=== PATIENT | female | born 1960 | race Caucasian/White ===

== ENCOUNTER 2016-12-14 11:20 | Inpatient (IN) | payer OTHER ==
[~2016-12-14] VITALS: Ht 154.9 cm; Wt 61.2 kg
[~2016-12-14 11:20] MED LIST: ALBUTEROL0.09 MG/A2 IH; AMLODIPINE5 MG PO; AMOXICILLIN500 MG PO; AMOXIL500 MG PO; ASPIRIN81 M1 PO; ATARAX25 MG PO; CARDIZEM LA240 MG PO; CIPRO500 MG PO; CIPRODEX 0.3%-7.5 ML OT; CLARITIN10 MG PO; DELTASONE5 MG PO; DIFLUCAN150 MG PO; DOXYCYCLINE MO100 MG PO; LIPITOR10 MG PO; LISINOPRIL-HYDR1 TA3 PO; MEDROL DOSEPAK4 MG PO; METOPROLOL50 MG PO; MICONAZOLE2% VG; MOTRIN800 MG PO; NEXIUM20 M1 PO; NKHM; NKHM PO; NORCO 325 MG-51 TAB PO; NORVASC5 MG PO; OMNICEF300 MG PO; PEPCID20 MG PO; PREDNICOT20 MG PO; PREDNISONE10 MG PO; PROZAC10 MG PO; RISPERDAL2 MG PO; ROBITUSSIN DM 105 ML PO; SEPTRA DS 800 M1 TAB PO; TESSALON PERLE100 M1 PO; VENTOLIN0.09 MG/AC INH; VIBRAMYCIN100 MG PO; VICODIN 5/500 505 MG PO; VICODIN ES 7501 TA1 PO; VICODIN1 TAB PO; VISTARIL25 M1 PO; ZITHROMAX250 MG PO; ZOVIRAX800 MG PO
[2016-12-14 11:25] VITALS: BP 135/77
[2016-12-14] MEDS ORDERED: VITAMIN E400 UNI2 PO (11:28)
[2016-12-14] MEDS ORDERED: VITAMIN D31000 IU PO (11:29)
[2016-12-14] MEDS ORDERED: MOBIC7.5 MG PO (11:29)
[2016-12-14] MEDS ORDERED: MINIPRESS2 M1 PO (11:29)
[2016-12-14] MEDS ORDERED: NYSTATIN100000 U/M PO (11:30)
[2016-12-14] MEDS ORDERED: AMOXICILLIN500 M3 PO (11:30)
[2016-12-14 12:09] LABS: BASO % 0.3 % (0.0-1.0); EOS # 0.2 10*3/uL (0.0-0.4); EOS % 1.6 % (1.0-4.0); HEMATOCRIT 37.9 % (37.0-47.0); HEMOGLOBIN 12.9 g/dl (12.0-16.0); LYMPH # 1.6 10*3/uL (1.3-4.4); MEAN CELL VOLUME 85.9 fl (81.0-99.0); MEAN CORPUSCULAR HGB 29.3 pg (27.0-31.0); MEAN PLATELET VOLUME 9.7 fl (9.6-12.3); MONO # 0.8 10*3/uL (0.1-1.0); MONO % 6.9 % (3.0-9.0); NEUT # 8.8 10*3/uL (2.3-7.9); NEUT % 76.8 % (47.0-73.0); PLATELET COUNT AUTOMATED 320 10*3/uL (130-400); RED BLOOD COUNT 4.41 10*6/uL (4.10-5.10); RED CELL DISTRI WIDTH 14.4 % (0-14.5); WHITE BLOOD COUNT 11.4 10*3/uL (4.8-10.8)
[2016-12-14 12:18] LABS: INTERNATIONAL NORM RATIO 0.9 (2.0-3.5)
[2016-12-14 12:27] LABS: ALBUMIN 3.9 gm/dl (3.1-4.5); ALKALINE PHOSPHATASE 72 U/L (45-117); BILIRUBIN, TOTAL 0.4 mg/dl (0.2-1.0); BUN 21 mg/dl (7-24); CARBON DIOXIDE 25 mmol/L (21-32); CHLORIDE 108 mmol/L (98-107); CKMB 0.5 ng/ml (0.5-3.6); EST GLOM FILT AFRICAN AMERICAN > 60 ml/min; GLUCOSE 106 mg/dL (65-99); MAGNESIUM 1.8 mg/dL (1.5-2.1); POTASSIUM 3.6 mmol/L (3.5-5.1); SGOT/AST 18 IU/L (3-35); SGPT/ALT 31 U/L (12-78); SODIUM 143 mmol/L (136-145); TOTAL PROTEIN 7.3 gm/dL (6.4-8.2)
[2016-12-14 12:28] LABS: C-REACTIVE PROTEIN < 0.29 MG/DL (0-0.3); TROPONIN I < 0.015 ng/ml (<0.045)
[2016-12-14 12:51] LABS: BILIRUBIN NEGATIVE (NEGATIVE); BLOOD NEGATIVE (NEGATIVE); CLARITY CLEAR (CLEAR); COLOR YELLOW (YELLOW); GLUCOSE NEGATIVE (NEGATIVE); KETONE NEGATIVE (NEGATIVE); LEUKO ESTERASE NEGATIVE (NEGATIVE); NITRITE NEGATIVE (NEGATIVE); PROTEIN TRACE (NEGATIVE); SPECIFIC GRAVITY 1.015 (1.005-1.030); UROBILINOGEN 0.2 E.U./dl (0.2-1.0)
[2016-12-14 12:58] LABS: EPITHELIAL CELLS 0-2; RBC 0-2 rbc/hpf (0-2)
[2016-12-14 12:59] LABS: URINE REFLEX COMMENT NO (NO)
[2016-12-14 14:06] LABS: LA>2 REFLEX 2 HR DRAW NOW
[2016-12-14 16:00] VITALS: BP 149/76
[2016-12-14 18:02] LABS: CKMB 0.8 ng/ml (0.5-3.6); CPK 61 U/L (26-192)
[2016-12-14 18:04] LABS: TROPONIN I < 0.015 ng/ml (<0.045)
[2016-12-14 20:00] VITALS: BP 161/89
[2016-12-15] VITALS: BP 163/85
[2016-12-15 00:41] LABS: CPK 77 U/L (26-192)
[2016-12-15 00:42] LABS: TROPONIN I < 0.015 ng/ml (<0.045)
[2016-12-15 04:00] VITALS: BP 154/87
[2016-12-15 07:06] LABS: BASO % 0.1 % (0.0-1.0); HEMOGLOBIN 11.7 g/dl (12.0-16.0); IG # 0.1 10*3/uL (0.0-0.1); LYMPH # 1.4 10*3/uL (1.3-4.4); LYMPH % 8.2 % (27.0-41.0); MEAN CELL VOLUME 87.5 fl (81.0-99.0); MEAN CORPUSCULAR HGB 29.3 pg (27.0-31.0); MEAN CORPUSCULAR HGB CONC 33.4 g/dl (33.0-37.0); MEAN PLATELET VOLUME 10.3 fl (9.6-12.3); MONO # 0.5 10*3/uL (0.1-1.0); MONO % 3.1 % (3.0-9.0); NEUT # 14.4 10*3/uL (2.3-7.9); NEUT % 87.8 % (47.0-73.0); PLATELET COUNT AUTOMATED 304 10*3/uL (130-400); RED CELL DISTRI WIDTH 14.6 % (0-14.5); WHITE BLOOD COUNT 16.4 10*3/uL (4.8-10.8)
[2016-12-15 07:16] LABS: CPK 96 U/L (26-192)
[2016-12-15 07:22] LABS: TROPONIN I < 0.015 ng/ml (<0.045)
[2016-12-15 07:39] LABS: ALBUMIN 3.6 gm/dl (3.1-4.5); ALKALINE PHOSPHATASE 65 U/L (45-117); BILIRUBIN, TOTAL 0.2 mg/dl (0.2-1.0); BUN 12 mg/dl (7-24); CARBON DIOXIDE 22 mmol/L (21-32); CHLORIDE 112 mmol/L (98-107); EST GLOM FILT AFRICAN AMERICAN > 60 ml/min; FREE T4 0.96 ng/dl (0.76-1.46); GLUCOSE 122 mg/dL (65-99); MAGNESIUM 1.9 mg/dL (1.5-2.1); PHOSPHOROUS 2.4 mg/dL (2.5-4.9); POTASSIUM 3.8 mmol/L (3.5-5.1); SGOT/AST 25 IU/L (3-35); SGPT/ALT 33 U/L (12-78); SODIUM 145 mmol/L (136-145); TOTAL PROTEIN 6.8 gm/dL (6.4-8.2)
[2016-12-15 07:41] LABS: PROTHROMBIN TIME 10.7 SECONDS (9.0-12.4)
[2016-12-15 07:44] LABS: THYROID STIM HORMONE (HS) 0.301 uIU/ml (0.358-4.75)
[2016-12-15 08:00] VITALS: BP 156/88
[2016-12-15 12:00] VITALS: BP 156/90
[2016-12-15 16:00] VITALS: BP 150/78
[2016-12-15 20:00] VITALS: BP 148/78; BP 150/75
[2016-12-16] VITALS: BP 151/90
[2016-12-16 04:00] VITALS: BP 150/90
[2016-12-16 06:13] LABS: BASO % 0.3 % (0.0-1.0); EOS # 0.1 10*3/uL (0.0-0.4); EOS % 0.9 % (1.0-4.0); HEMATOCRIT 33.4 % (37.0-47.0); HEMOGLOBIN 11.3 g/dl (12.0-16.0); LYMPH # 2.5 10*3/uL (1.3-4.4); LYMPH % 31.7 % (27.0-41.0); MEAN CELL VOLUME 87.7 fl (81.0-99.0); MEAN CORPUSCULAR HGB 29.7 pg (27.0-31.0); MEAN CORPUSCULAR HGB CONC 33.8 g/dl (33.0-37.0); MEAN PLATELET VOLUME 10.3 fl (9.6-12.3); MONO # 0.6 10*3/uL (0.1-1.0); MONO % 7.7 % (3.0-9.0); NEUT # 4.6 10*3/uL (2.3-7.9); PLATELET COUNT AUTOMATED 259 10*3/uL (130-400); RED BLOOD COUNT 3.81 10*6/uL (4.10-5.10); RED CELL DISTRI WIDTH 14.9 % (0-14.5); WHITE BLOOD COUNT 7.8 10*3/uL (4.8-10.8)
[2016-12-16 06:40] LABS: BUN 10 mg/dl (7-24); CARBON DIOXIDE 26 mmol/L (21-32); CHLORIDE 110 mmol/L (98-107); EST GLOM FILT AFRICAN AMERICAN > 60 ml/min; GLUCOSE 88 mg/dL (65-99); POTASSIUM 3.4 mmol/L (3.5-5.1); SODIUM 145 mmol/L (136-145)
[2016-12-16 08:00] VITALS: BP 136/80
[2016-12-16] MEDS ORDERED: D-1000 185 MG-11 TAB PO (09:41)
[2016-12-16] MEDS ORDERED: HYDR12.5C PO (09:41)
== END 2016-12-16 10:00 | disposition home or self-care (01) | DRG 872 ==
LOC: ED 11:20 → EDHOLD 12:46 → 4E 12:46
PROVIDERS: Family Medicine; Hospitalist; Student in an Organized Health Care Education/Training Program
DX: A41.9 Sepsis, unspecified organism (principal); J43.9 Emphysema, unspecified; I10 Essential (primary) hypertension; R11.10 Vomiting, unspecified; J40 Bronchitis, not specified as acute or chronic; F41.1 Generalized anxiety disorder; R19.09 Other intra-abdominal and pelvic swelling, mass and lump; A08.4 Viral intestinal infection, unspecified; Z90.49 Acquired absence of other specified parts of digestive tract; Z87.891 Personal history of nicotine dependence; Z80.9 Family history of malignant neoplasm, unspecified; Z79.2 Long term (current) use of antibiotics; Z79.899 Other long term (current) drug therapy

== ENCOUNTER → 2017-01-14 | Outpatient (CLI) | payer OTHER ==
[~2017-01-14] MED LIST changes: +AMOXICILLIN500 M3 PO; +D-1000 185 MG-11 TAB PO; +HYDR12.5C PO; +MINIPRESS2 M1 PO; +MOBIC7.5 MG PO; +NYSTATIN100000 U/M PO; +VITAMIN D31000 IU PO; +VITAMIN E400 UNI2 PO
== END | disposition home or self-care (01) ==
LOC: US 14:28
DX: R10.2 Pelvic and perineal pain (principal)

== ENCOUNTER → 2017-02-04 | Outpatient (CLI) | payer MEDICARE, MEDICAID ==
[2017-02-04 14:30] LABS: BASO % 0.4 % (0.0-1.0); EOS # 0.2 10*3/uL (0.0-0.4); EOS % 2.3 % (1.0-4.0); HEMATOCRIT 39.3 % (37.0-47.0); HEMOGLOBIN 12.9 g/dl (12.0-16.0); LYMPH # 2.3 10*3/uL (1.3-4.4); LYMPH % 32.3 % (27.0-41.0); MEAN CELL VOLUME 90.1 fl (81.0-99.0); MEAN CORPUSCULAR HGB 29.6 pg (27.0-31.0); MEAN CORPUSCULAR HGB CONC 32.8 g/dl (33.0-37.0); MEAN PLATELET VOLUME 10.5 fl (9.6-12.3); MONO # 0.6 10*3/uL (0.1-1.0); MONO % 8.5 % (3.0-9.0); NEUT % 56.1 % (47.0-73.0); PLATELET COUNT AUTOMATED 311 10*3/uL (130-400); RED BLOOD COUNT 4.36 10*6/uL (4.10-5.10); RED CELL DISTRI WIDTH 14.2 % (0-14.5); WHITE BLOOD COUNT 7.1 10*3/uL (4.8-10.8)
== END | disposition home or self-care (01) ==
LOC: LAB 12:46
PROVIDERS: Obstetrics & Gynecology
DX: N83.209 Unspecified ovarian cyst, unspecified side (principal)

== ENCOUNTER → 2017-02-10 | Day surgery (SDC) | payer MEDICARE, MEDICAID ==
[~2017-02-10] VITALS: Ht 157.4 cm; Wt 62.6 kg
[2017-02-10] VITALS (12 sets, daily range): BP systolic 101–135; BP diastolic 52–82
[~2017-02-10] MED LIST changes: +PERCOCET 325 MG1 TA5 PO; +ZOFRAN ODT4 MG SL
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
--- NOTE | ~2017-02-10 | O ---
[place], [place] OPERATIVE NOTE NAME: AMAN CATALAN [facility] #: [id number] UNIT #: [id number] ROOM: DOCTOR: BUZZ PINEDA MD BIRTHDATE: [birth year] DOS: 02/10/2017 PREOPERATIVE DIAGNOSES: Left lower quadrant pain and a large simple cyst of the left ovary per ultrasound. POSTOPERATIVE DIAGNOSES: Left lower quadrant pain and a large simple cyst of the left ovary per ultrasound, but the large cyst of the ovary was actually considerably larger than the ultrasound suggested and it was mucinous and not just a simple serous cyst. PROCEDURE: The operation itself was a diagnostic and operative laparoscopy with a bilateral salpingo-oophorectomy and only minimal aspiration of this cyst to send the fluid for cytology. SURGEONS: Buzz Pineda M.D and Dr. Pickett. ANESTHETIC: General. ESTIMATED BLOOD LOSS: Minimal. REPLACEMENTS: IV fluids and Toradol. COMPLICATIONS: There were no complications. CONDITION: The patient's condition to recovery stable. OPERATIVE SUMMARY: The patient was taken to the operating room in supine position and general anesthesia with endotracheal intubation followed by placement in lithotomy position, prepped and draped in routine manner. Straight cath of the bladder was completed and the cervix was then grasped with a cervical manipulator placed. Infraumbilical and suprapubic incisions were made under direct visualization. A 5 mm trocar and sleeve and laparoscope were introduced through the infraumbilical incision. CO2 was then insufflated followed by placement of another 5 mm trocar and sleeve through the suprapubic incision and then once we had completed our survey, we placed an 11-12 trocar and sleeve through the right lower quadrant incision. The uterus itself was normal with only a couple of small fibroids. The anterior and posterior cul-de-sacs were normal. The right tube and ovary was atrophic and normal. The left ovary was considerably larger than the ultrasound had suggested, but was free and mobile and the left tube itself was normal. Evaluation of the cecum suggested appendix, but there were some periappendiceal adhesions noted. The liver edge was considered to be normal. The gallbladder was not visualized. Once the survey had been completed, we introduced through the right lower quadrant incision and trocar, a LigaSure and then we proceeded to remove each tube and ovary without complication. Ureters were maintained in visualization when well below our operative sites bilaterally. Good hemostasis was achieved in both operative sites in both adnexal regions. Once this was completed, we placed both tubes and ovaries into an EndoCatch bag and then we attempted to aspirate within the bag the large cyst to help with its removal; however, this was anything but a simple serous cyst. The fluid removed was quite viscus [place], [place] OPERATIVE NOTE NAME: AMAN CATALAN UNIT #: [id number] ROOM: DOCTOR: BUZZ PINEDA MD BIRTHDATE: [birth year] consistent with a mucinous cystadenoma. We removed what we could and sent that for cytology, but then we closed the bag and gradually worked away the bag out through the right lower quadrant incision having expanded it just slightly to help get the specimen out. Once this was completed, we again examined for hemostasis and noted good hemostasis. We closed the fascia with a running locking 0 Vicryl suture in the right lower quadrant incision. We then used 3-0 Monocryl to reapproximate the subcutaneous tissue and the skin. We then used a Monocryl for subcuticular closure of the suprapubic and infraumbilical incisions as well. Once that was completed, the patient was cleaned off. Dressings placed. The instrumentation was removed from the vagina and noting good hemostasis within the vagina, from the vagina and the patient was taken out of lithotomy position, awakened, extubated, and transferred to recovery in satisfactory condition with stable vital signs, good hemostasis, stable sponge and instrument count. BUZZ PINEDA MD CM:OPRECORD:OPERATIVE NOTE 1227 1327 MARY PINEDA MD 02/10/17 1326 interface
== END | disposition home or self-care (01) ==
LOC: SDC 02-04 13:15
DX: N83.292 Other ovarian cyst, left side (principal); I10 Essential (primary) hypertension; K21.9 Gastro-esophageal reflux disease without esophagitis; F17.210 Nicotine dependence, cigarettes, uncomplicated; Z98.890 Other specified postprocedural states; I09.9 Rheumatic heart disease, unspecified; F41.9 Anxiety disorder, unspecified; F32.9 Major depressive disorder, single episode, unspecified; J44.9 Chronic obstructive pulmonary disease, unspecified; E78.5 Hyperlipidemia, unspecified; Z87.01 Personal history of pneumonia (recurrent); Z98.51 Tubal ligation status; Z83.3 Family history of diabetes mellitus; Z80.3 Family history of malignant neoplasm of breast; Z79.899 Other long term (current) drug therapy

== ENCOUNTER 2017-02-11 12:14 | Emergency (ER) | payer MEDICARE, MEDICAID ==
[~2017-02-11] VITALS: Ht 157.4 cm; Wt 61.2 kg
[~2017-02-11 12:14] MED LIST changes: -ZOFRAN ODT4 MG SL
[2017-02-11 13:11] LABS: BASO % 0.1 % (0.0-1.0); HEMATOCRIT 37.7 % (37.0-47.0); HEMOGLOBIN 12.8 g/dl (12.0-16.0); IG # 0.1 10*3/uL (0.0-0.1); LYMPH # 1.7 10*3/uL (1.3-4.4); LYMPH % 8.7 % (27.0-41.0); MEAN CELL VOLUME 88.5 fl (81.0-99.0); MEAN PLATELET VOLUME 10.4 fl (9.6-12.3); MONO # 0.8 10*3/uL (0.1-1.0); MONO % 4.3 % (3.0-9.0); NEUT # 16.9 10*3/uL (2.3-7.9); NEUT % 86.4 % (47.0-73.0); PLATELET COUNT AUTOMATED 320 10*3/uL (130-400); RED BLOOD COUNT 4.26 10*6/uL (4.10-5.10); WHITE BLOOD COUNT 19.6 10*3/uL (4.8-10.8)
[2017-02-11 13:19] LABS: BILIRUBIN NEGATIVE (NEGATIVE); BLOOD 2+ (NEGATIVE); CLARITY SL CLOUDY (CLEAR); COLOR YELLOW (YELLOW); GLUCOSE TRACE (NEGATIVE); KETONE NEGATIVE (NEGATIVE); LEUKO ESTERASE NEGATIVE (NEGATIVE); NITRITE NEGATIVE (NEGATIVE); PROTEIN TRACE (NEGATIVE); SPECIFIC GRAVITY 1.025 (1.005-1.030); UROBILINOGEN 0.2 E.U./dl (0.2-1.0)
[2017-02-11 13:21] LABS: PROTHROMBIN TIME 10.5 SECONDS (9.0-12.4)
[2017-02-11 13:27] LABS: MUCOUS 2+; RBC 16-20 rbc/hpf (0-2); URINE REFLEX COMMENT YES (NO)
[2017-02-11 13:28] LABS: ALBUMIN 3.8 gm/dl (3.1-4.5); ALKALINE PHOSPHATASE 65 U/L (45-117); BILIRUBIN, TOTAL 0.2 mg/dl (0.2-1.0); BUN 17 mg/dl (7-24); C-REACTIVE PROTEIN < 0.29 MG/DL (0-0.3); CARBON DIOXIDE 21 mmol/L (21-32); CHLORIDE 107 mmol/L (98-107); CPK 98 U/L (26-192); EST GLOM FILT AFRICAN AMERICAN > 60 ml/min; GLUCOSE 143 mg/dL (65-99); POTASSIUM 3.7 mmol/L (3.5-5.1); SGOT/AST 24 IU/L (3-35); SGPT/ALT 50 U/L (12-78); SODIUM 143 mmol/L (136-145); TOTAL PROTEIN 7.5 gm/dL (6.4-8.2); TROPONIN I < 0.015 ng/ml (<0.045)
[2017-02-11 15:08] LABS: LA>2 REFLEX 2 HR DRAW NOW
[2017-02-11] MEDS ORDERED: ZOFRAN ODT4 MG SL (16:21)
== END 2017-02-11 16:35 | disposition home or self-care (01) ==
LOC: ED 12:14
PROVIDERS: Emergency Medicine
DX: G89.18 Other acute postprocedural pain (principal); R11.2 Nausea with vomiting, unspecified; J44.9 Chronic obstructive pulmonary disease, unspecified; I11.9 Hypertensive heart disease without heart failure; Z90.710 Acquired absence of both cervix and uterus; Z79.899 Other long term (current) drug therapy

== ENCOUNTER 2017-07-31 14:20 | Emergency (ER) | payer OTHER, MEDICARE, MEDICAID ==
[~2017-07-31] VITALS: Ht 157.4 cm; Wt 59.0 kg
[~2017-07-31 14:20] MED LIST changes: +ZOFRAN ODT4 MG SL
[2017-07-31] MEDS ORDERED: KETOROLAC10 MG PO (17:51)
== END 2017-07-31 17:53 | disposition home or self-care (01) ==
LOC: ED 14:20
DX: S50.02XA Contusion of left elbow, initial encounter (principal); I10 Essential (primary) hypertension; S80.01XA Contusion of right knee, initial encounter; V47.5XXA Car driver injured in collision with fixed or stationary object in traffic accident, initial encounter; Y93.89 Activity, other specified; Y92.488 Other paved roadways as the place of occurrence of the external cause; Y99.8 Other external cause status

== ENCOUNTER 2017-10-25 15:52 | Emergency (ER) | payer MEDICARE, MEDICAID ==
[~2017-10-25] VITALS: Ht 157.4 cm; Wt 59.0 kg
[~2017-10-25 15:52] MED LIST changes: +KETOROLAC10 MG PO
[2017-10-25] MEDS ORDERED: SEPTDS PO (16:01)
== END 2017-10-25 16:01 | disposition home or self-care (01) ==
LOC: ED 15:52
DX: Z48.01 Encounter for change or removal of surgical wound dressing (principal); R03.0 Elevated blood-pressure reading, without diagnosis of hypertension; J44.9 Chronic obstructive pulmonary disease, unspecified; Z90.49 Acquired absence of other specified parts of digestive tract

== ENCOUNTER 2018-05-08 13:52 | Emergency (ER) | payer MEDICARE, MEDICAID ==
[~2018-05-08] VITALS: Ht 157.4 cm; Wt 61.2 kg
--- NOTE | ~2018-05-08 | EKG ---
[place], [place] ELECTROCARDIOGRAM REPORT NAME: AMAN CATALAN UNIT #: [id number] ROOM: DOCTOR: CHARLENE DRAFT REPORT BIRTHDATE: [birth year] [facility] Test Date: 2018-05-08 Test Time: 13:58:16 Pat Name: AMAN CATALAN Department: Room: Gender: F Jacquard Plate Maker: : 1960 Requested By: SHANITA WALLACE Order Number: [id number] Reading MD: Eugene Smith MD Measurements Intervals [place] Rate: 92 P: 70 SD: 148 QRS: 64 QRSD: 96 T: 39 QT: 385 QTc: 477 Interpretive Statements Sinus rhythm Normal ECG Electronically Signed On 05-10-2018 6:16:46 PDT by Eugene Smith MD CM:EKGRPT:ELECTROCARDIOGRAM REPORT [id number] SHANITA CHANG DRAFT REPORT SHANITA WALLACE MD
[~2018-05-08 13:52] MED LIST changes: +SEPTDS PO
[2018-05-08 14:31] LABS: BASO % 0.2 % (0.0-1.0); EOS # 0.1 10*3/uL (0.0-0.4); EOS % 0.6 % (1.0-4.0); HEMATOCRIT 37.4 % (37.0-47.0); HEMOGLOBIN 12.9 g/dl (12.0-16.0); LYMPH # 1.3 10*3/uL (1.3-4.4); LYMPH % 10.5 % (27.0-41.0); MEAN CORPUSCULAR HGB CONC 34.5 g/dl (33.0-37.0); MEAN PLATELET VOLUME 9.9 fl (9.6-12.3); MONO # 0.7 10*3/uL (0.1-1.0); MONO % 5.1 % (3.0-9.0); NEUT # 10.6 10*3/uL (2.3-7.9); NEUT % 83.2 % (47.0-73.0); PLATELET COUNT AUTOMATED 317 10*3/uL (130-400); RED CELL DISTRI WIDTH 13.6 % (0-14.5); WHITE BLOOD COUNT 12.7 10*3/uL (4.8-10.8)
[2018-05-08 14:40] LABS: ACT PARTIAL THROMBO TIME 21.8 SECONDS (20.8-31.5); INTERNATIONAL NORM RATIO 0.9 (2.0-3.5)
[2018-05-08 14:48] LABS: ALBUMIN 4.2 gm/dl (3.1-4.5); ALKALINE PHOSPHATASE 69 U/L (45-117); BUN 26 mg/dl (7-24); CHLORIDE 104 mmol/L (98-107); CREATININE 0.73 mg/dL (0.55-1.02); POTASSIUM 3.5 mmol/L (3.5-5.1); SGOT/AST 13 IU/L (3-35); SGPT/ALT 20 U/L (12-78); SODIUM 137 mmol/L (136-145); TOTAL PROTEIN 7.6 gm/dL (6.4-8.2)
[2018-05-08 14:51] LABS: TROPONIN I < 0.015 ng/ml (<0.045)
[2018-05-08] MEDS ORDERED: CIPRODEX 0.3%-7.5 ML OT ×3 (15:49→16:22)
[2018-07-24] MEDS ORDERED: MELOXICAM7.5 MG PO (09:39)
[2018-07-24] MEDS ORDERED: OMEPRAZOLE40 MG PO (09:41)
[2018-07-24] MEDS ORDERED: CRESTOR5 MG PO (09:42)
== END 2018-05-08 16:12 | disposition home or self-care (01) ==
LOC: ED 13:52
PROVIDERS: Emergency Medicine
DX: H72.92 Unspecified perforation of tympanic membrane, left ear (principal); I10 Essential (primary) hypertension; J44.9 Chronic obstructive pulmonary disease, unspecified; E78.00 Pure hypercholesterolemia, unspecified; Z87.891 Personal history of nicotine dependence; Z90.49 Acquired absence of other specified parts of digestive tract; Z79.899 Other long term (current) drug therapy

== ENCOUNTER → 2018-06-12 | Outpatient (CLI) | payer MEDICARE, MEDICAID ==
[~2018-06-12] MED LIST changes: +CRESTOR5 MG PO; +MELOXICAM7.5 MG PO; +OMEPRAZOLE40 MG PO
--- NOTE | ~2018-06-12 | EKG ---
[place], [place] ELECTROCARDIOGRAM REPORT NAME: AMAN CATALAN UNIT #: [id number] ROOM: DOCTOR: EPIPHANY DRAFT REPORT BIRTHDATE: [birth year] [facility] Test Date: 2018-06-12 Test Time: 11:35:19 Pat Name: AMAN CATALAN Department: Room: Gender: F Director Hris: Dafne Giles : 1960 Requested By: TOÑO MARSHALL Order Number: [id number] Reading MD: Arnav Michel MD Measurements Intervals [place] Rate: 71 P: 64 [place]: 138 QRS: 59 QRSD: 95 T: 36 QT: 391 QTc: 425 Interpretive Statements Sinus rhythm Compared to ECG 05/08/2018 13:58:16 No significant changes Electronically Signed On 06-12-2018 11:13:32 PDT by Arnav Michel MD CM:EKGRPT:ELECTROCARDIOGRAM REPORT 1135 1113 TOÑO CHANG DRAFT REPORT TOÑO MARSHALL
== END | disposition home or self-care (01) ==
LOC: RAD 11:19
DX: I10 Essential (primary) hypertension (principal); J44.9 Chronic obstructive pulmonary disease, unspecified

== ENCOUNTER → 2018-06-16 | Outpatient (CLI) | payer MEDICARE, MEDICAID | END | disposition home or self-care (01) | LOC: CT 08:41 | DX: K57.30 Diverticulosis of large intestine without perforation or abscess without bleeding (principal); M47.896 Other spondylosis, lumbar region; K21.9 Gastro-esophageal reflux disease without esophagitis; R10.2 Pelvic and perineal pain; R11.0 Nausea; I70.0 Atherosclerosis of aorta ==

== ENCOUNTER → 2018-07-01 | Outpatient (CLI) | payer MEDICARE, MEDICAID | END | disposition home or self-care (01) | LOC: RAD 06-30 12:05 | DX: M19.042 Primary osteoarthritis, left hand (principal); M19.041 Primary osteoarthritis, right hand; R06.02 Shortness of breath; J44.9 Chronic obstructive pulmonary disease, unspecified; I10 Essential (primary) hypertension; Z87.891 Personal history of nicotine dependence ==

== ENCOUNTER → 2018-07-29 | Day surgery (SDC) | payer MEDICARE, MEDICAID ==
[~2018-07-29] VITALS: Ht 162.5 cm; Wt 63.5 kg
--- NOTE | ~2018-07-29 | O ---
[place], [place] OPERATIVE NOTE [id number] #: [id number] ROOM: DOCTOR: ARSENIO FRANCOIS,DOROTHY BIRTHDATE: [birth year] DOS: 07/29/2018 GASTROENDOSCOPIC REPORT INDICATIONS: The patient has presented with hepatic lesion of 1.3 cm. We have been concerned about if it has been contribution from colon. PROCEDURE: Today's procedure part of investigation is colonoscopy. PREMEDICATION: Propofol. SCOPE: Olympus folding colonoscope 10L video. REPORT: After putting the patient in left lateral position and application of lubricant to rectal pouch and digital examination, scope was introduced. Thereafter, under direct visualization, it was advanced through the length of colon without difficulty. There is severe diverticulosis. Some of the diverticula are quite large simulating diameter of the lumen of the colon. Some light large fecalith are impacted in them. Base of cecum however explored; however, there is retained semi-liquid stool throughout the length of colon that makes detailed visualization impractical. The patient was extubated, tolerated the procedure well. IMPRESSION: Retained stool and severe diverticulosis. PLAN: This patient requires another colonoscopy for detailed evaluation in the future. As far as the liver is concerned, I am going to obtain a sonogram of the texture of the liver to make sure if there is consistency with the findings of CT scan as far as liver mass of 1.3 cm is concerned. DOROTHY CESAR MD CM:OPRECORD:OPERATIVE NOTE 6 3 DOROTHY CESAR MD 07/29/18833 interface
--- NOTE | ~2018-07-29 | O ---
[place], [place] OPERATIVE NOTE [id number] #: [id number] ROOM: DOCTOR: DOROTHY CESAR MD BIRTHDATE: [birth year] DOS: 07/29/2018 GASTROENDOSCOPIC REPORT INDICATIONS: This is a 58-year-old patient who has presented with abdominal pain, left lower quadrant pain, constipation, dyspepsia, on meloxicam and on omeprazole. CT scan suspected a 1.3 cm hepatic lesion. ALLERGIES: To no known medication. FAMILY HISTORY: Uncle with colon CA. PAST SURGICAL HISTORY: Hysterectomy, tubal ligation, and cholecystectomy. PAST MEDICAL HISTORY: COPD, hypertension, and hyperlipidemia. SOCIAL HISTORY: She has stopped smoking 2 years ago. Social alcohol. PROCEDURE: Today's procedure part of investigation is panendoscopy and colonoscopy. PREMEDICATION: Propofol. SCOPE: Olympus forward-viewing gastroscope Q10 video. REPORT: After putting the patient in left lateral position and application of lubricant to the scope, the scope was introduced. Thereafter, under direct visualization, it was advanced the length of esophagus without difficulty. Esophagus, cervical, thoracic disks are within normal limits. Hiatal hernia was noticed. Gastritis seen. Antral biopsy was obtained. The duodenal bulb, second and third part within normal limits. The patient was extubated, tolerated the procedure well. IMPRESSION: Hiatal hernia and gastritis. PLAN: We are going to continue with omeprazole 40 mg daily. The patient is on meloxicam and should stay on PPI chronically. [place], [place] OPERATIVE NOTE NAME: AMAN CATALAN UNIT #: [id number] ROOM: DOCTOR: DOROTHY CESAR MD BIRTHDATE: [birth year] DOROTHY CESAR MD CM:OPRECORD:OPERATIVE NOTE 6 6 DOROTHY CESAR MD 07/29/18826 interface
[2018-07-29 06:30] VITALS: BP 135/66
[2018-07-29 08:10] VITALS: BP 139/94
[2018-07-29 08:25] VITALS: BP 151/77
[2018-07-29 08:40] VITALS: BP 133/93
== END | disposition home or self-care (01) ==
LOC: SDC 07-24 08:00
DX: K57.30 Diverticulosis of large intestine without perforation or abscess without bleeding (principal); K29.50 Unspecified chronic gastritis without bleeding; K44.9 Diaphragmatic hernia without obstruction or gangrene; K56.41 Fecal impaction; I10 Essential (primary) hypertension; J44.9 Chronic obstructive pulmonary disease, unspecified; E78.5 Hyperlipidemia, unspecified; K76.89 Other specified diseases of liver; F32.9 Major depressive disorder, single episode, unspecified; F41.9 Anxiety disorder, unspecified; Z90.710 Acquired absence of both cervix and uterus; Z90.49 Acquired absence of other specified parts of digestive tract; Z98.51 Tubal ligation status; Z80.0 Family history of malignant neoplasm of digestive organs; Z87.891 Personal history of nicotine dependence; Z79.899 Other long term (current) drug therapy; Z86.010 Personal history of colon polyps; Z98.890 Other specified postprocedural states

== ENCOUNTER → 2018-08-08 | Outpatient (CLI) | payer MEDICARE, MEDICAID | END | disposition home or self-care (01) | LOC: US 11:00 | DX: R16.0 Hepatomegaly, not elsewhere classified (principal); Z90.49 Acquired absence of other specified parts of digestive tract ==

== ENCOUNTER 2018-09-21 15:08 | Emergency (ER) | payer MEDICARE, MEDICAID ==
[~2018-09-21] VITALS: Ht 157.4 cm; Wt 61.7 kg
[2018-09-21] MEDS ORDERED: PROAIR HFA8.5 GM INH (16:37)
[2018-09-21] MEDS ORDERED: PREDNISONE50 MG PO (16:37)
[2018-09-21] MEDS ORDERED: AVPAK AZITHROM250 MG PO (16:37)
[2018-09-21 16:47] LABS: BILIRUBIN NEGATIVE (NEGATIVE); BLOOD TRACE-INTACT (NEGATIVE); CLARITY CLEAR (CLEAR); COLOR YELLOW (YELLOW); GLUCOSE NEGATIVE (NEGATIVE); KETONE NEGATIVE (NEGATIVE); LEUKO ESTERASE 1+ (NEGATIVE); NITRITE NEGATIVE (NEGATIVE); PH 5.5 (5.0-9.0); SPECIFIC GRAVITY <= 1.005 (1.005-1.030); UROBILINOGEN 0.2 E.U./dl (0.2-1.0)
[2018-09-21 16:58] LABS: BACTERIA TRACE
== END 2018-09-21 16:41 | disposition home or self-care (01) ==
LOC: ED 15:08
PROVIDERS: Nurse Practitioner Family
DX: J20.9 Acute bronchitis, unspecified (principal); I10 Essential (primary) hypertension; E78.5 Hyperlipidemia, unspecified; J44.9 Chronic obstructive pulmonary disease, unspecified; Z79.899 Other long term (current) drug therapy

== ENCOUNTER → 2019-04-08 | Outpatient (CLI) | payer MEDICARE, MEDICAID ==
[~2019-04-08] MED LIST changes: +AVPAK AZITHROM250 MG PO; +PREDNISONE50 MG PO; +PROAIR HFA8.5 GM INH
== END | disposition home or self-care (01) ==
LOC: US 09:19
DX: K76.89 Other specified diseases of liver (principal); R11.0 Nausea; Z90.49 Acquired absence of other specified parts of digestive tract

== ENCOUNTER 2019-05-07 12:19 | Inpatient (IN) | payer MEDICARE, MEDICAID ==
[2019-05-07] VITALS (7 sets, daily range): BP systolic 137–160; BP diastolic 64–88
[~2019-05-07] VITALS: Ht 157.4 cm; Wt 59.4 kg
--- NOTE | ~2019-05-07 | EKG ---
[place], [place] ELECTROCARDIOGRAM REPORT NAME: AMAN CATALAN UNIT #: [id number] ROOM: 421 DOCTOR: CHARLENE DRAFT REPORT BIRTHDATE: [birth year] [facility] Test Date: 2019-05-07 Test Time: 18:06:35 Pat Name: AMAN CATALAN Department: Room: 421 1 Gender: F Culinary Director: Dafne Giles : 1960 Requested By: SERA LUONG Order Number: [id number] Reading MD: Jackie Gupta MD Measurements Intervals [place] Rate: 80 P: 63 NE: 151 QRS: 54 QRSD: 98 T: 29 QT: 396 QTc: 457 Interpretive Statements Sinus rhythm Minimal ST depression, inferior leads Compared to ECG 06/12/2018 11:35:19 ST (T wave) deviation now present Electronically Signed On 05-09-2019 7:45:38 PDT by Jackie Gupta MD CM:EKGRPT:ELECTROCARDIOGRAM REPORT 1806 0745 SERA LUONG EPIPHANY DRAFT REPORT SERA LUONG
--- NOTE | ~2019-05-07 | EKG ---
[place], [place] ELECTROCARDIOGRAM REPORT NAME: AMAN CATALAN UNIT #: [id number] ROOM: 421 DOCTOR: CHARLENE DRAFT REPORT BIRTHDATE: [address] [facility] Test Date: 2019-05-07 Test Time: 12:28:11 Pat Name: AMAN CATALAN Department: Room: 421 Gender: F Bung Driver: Dafne Giles : 1960 Requested By: FAHAD MA Order Number: [id number] Reading MD: Jackie Gupta MD Measurements Intervals [place] Rate: 89 P: 54 MD: 156 QRS: 53 QRSD: 94 T: 37 QT: 378 QTc: 460 Interpretive Statements Sinus rhythm Compared to ECG 06/12/2018 11:35:19 No significant changes Electronically Signed On 05-09-2019 7:45:08 PDT by Jackie Gupta MD CM:EKGRPT:ELECTROCARDIOGRAM REPORT 1228 0745 FAHAD MCKNIGHT DRAFT REPORT FAHAD MA DO
--- NOTE | ~2019-05-07 | EKG ---
[place], [place] ELECTROCARDIOGRAM REPORT NAME: AMAN CATALAN UNIT #: [id number] ROOM: 421 DOCTOR: CHARLENE DRAFT REPORT BIRTHDATE: [birth year] [facility] Test Date: 2019-05-07 Test Time: 23:48:42 Pat Name: AMAN CATALAN Department: Room: 421 1 Gender: F Remote Sensing Technologist: : 1960 Requested By: SERA LUONG Order Number: [id number] Reading MD: Jackie Gupta MD Measurements Intervals [place] Rate: 86 P: 67 [place]: 164 QRS: 65 QRSD: 100 T: 47 QT: 385 QTc: 461 Interpretive Statements Sinus rhythm Compared to ECG 06/12/2018 11:35:19 No significant changes Electronically Signed On 05-09-2019 7:46:12 PDT by Jackie Gupta MD CM:EKGRPT:ELECTROCARDIOGRAM REPORT [id number] SERA LUONG EPIPHANY DRAFT REPORT SERA LUONG
[2019-05-07 12:51] LABS: BILIRUBIN NEGATIVE (NEGATIVE); BLOOD 1+ (NEGATIVE); CLARITY CLEAR (CLEAR); COLOR YELLOW (YELLOW); GLUCOSE NEGATIVE (NEGATIVE); KETONE NEGATIVE (NEGATIVE); LEUKO ESTERASE NEGATIVE (NEGATIVE); NITRITE NEGATIVE (NEGATIVE); PH 5.5 (5.0-9.0); SPECIFIC GRAVITY >= 1.030 (1.005-1.030); UROBILINOGEN 0.2 E.U./dl (0.2-1.0)
[2019-05-07 12:55] LABS: BASO % 0.2 % (0.0-1.0); EOS % 0.1 % (1.0-4.0); HEMATOCRIT 35.5 % (37.0-47.0); HEMOGLOBIN 12.3 g/dl (12.0-16.0); LYMPH # 2.3 10*3/uL (1.3-4.4); LYMPH % 20.7 % (27.0-41.0); MEAN CORPUSCULAR HGB 30.1 pg (27.0-31.0); MEAN CORPUSCULAR HGB CONC 34.6 g/dl (33.0-37.0); MONO # 0.8 10*3/uL (0.1-1.0); MONO % 6.8 % (3.0-9.0); NEUT # 7.9 10*3/uL (2.3-7.9); NEUT % 71.9 % (47.0-73.0); PLATELET COUNT AUTOMATED 320 10*3/uL (130-400); RED BLOOD COUNT 4.08 10*6/uL (4.10-5.10); RED CELL DISTRI WIDTH 13.4 % (0-14.5)
[2019-05-07 13:09] LABS: ALBUMIN 3.9 gm/dl (3.1-4.5); ALKALINE PHOSPHATASE 68 U/L (45-117); BUN 20 mg/dl (7-24); CHLORIDE 107 mmol/L (98-107); CREATININE 0.93 mg/dL (0.55-1.02); LIPASE 96 U/L (73-393); POTASSIUM 3.5 mmol/L (3.5-5.1); SGOT/AST 16 IU/L (3-35); SGPT/ALT 21 U/L (12-78); SODIUM 138 mmol/L (136-145); TOTAL PROTEIN 7.2 gm/dL (6.4-8.2)
[2019-05-07 13:12] LABS: TROPONIN I < 0.015 ng/ml (<0.045)
[2019-05-07 13:13] LABS: ACT PARTIAL THROMBO TIME 24.9 SECONDS (20.0-32.1); INTERNATIONAL NORM RATIO 0.9 (2.0-3.5)
--- NOTE | 2019-05-07 14:40 | NUR ---
PT REMAINS W/O ACUTE DISTRESS NOTED POSITIONED FOR COMFORT W/SAFETY PRECAUTIONS INTACT AND CALL LIGHT WITHIN REACH, NO ADDITIONAL COMPLAINTS VOICED.
--- NOTE | 2019-05-07 16:50 | NUR ---
A 59, admitted to , under the services of OVIDIO Vazquez DO with a diagnosis of CLOSED HEAD INJURY,SYNCOPE. Chief complaint is SYNCOPE. Patient arrived via stretcher from ER. Monitor applied. Initial assessment completed. Vital signs taken and recorded. OVIDIO VAZQUEZ DO notified of admission to the unit. Orders received. See assessment for past medical history, medications and allergies. Patient and/or family oriented to unit. [facility] FLO[facility] visitation policy reviewed. Clothing/patient valuable form completed. KERMIT POLO
[2019-05-07] MEDS ORDERED: LISINOPRIL-HCT1 EACH PO (17:05)
[2019-05-07] MEDS ORDERED: VITAMIN D5000 UNIT PO (17:08)
--- NOTE | 2019-05-07 18:44 | NUR ---
NOTIFIED DR. SULTANA [facility] REC IS UP TO DATE.
[2019-05-08] VITALS: BP 126/53
[2019-05-08 06:25] LABS: BASO % 0.5 % (0.0-1.0); EOS # 0.1 10*3/uL (0.0-0.4); EOS % 1.7 % (1.0-4.0); HEMATOCRIT 34.4 % (37.0-47.0); HEMOGLOBIN 11.7 g/dl (12.0-16.0); LYMPH # 2.8 10*3/uL (1.3-4.4); LYMPH % 42.7 % (27.0-41.0); MEAN CELL VOLUME 88.7 fl (81.0-99.0); MEAN CORPUSCULAR HGB 30.2 pg (27.0-31.0); MEAN PLATELET VOLUME 10.1 fl (9.6-12.3); MONO # 0.6 10*3/uL (0.1-1.0); MONO % 9.1 % (3.0-9.0); NEUT % 45.7 % (47.0-73.0); PLATELET COUNT AUTOMATED 280 10*3/uL (130-400); RED BLOOD COUNT 3.88 10*6/uL (4.10-5.10); RED CELL DISTRI WIDTH 13.6 % (0-14.5); WHITE BLOOD COUNT 6.5 10*3/uL (4.8-10.8)
[2019-05-08 07:07] LABS: ALBUMIN 3.1 gm/dl (3.1-4.5); BUN 17 mg/dl (7-24); CHLORIDE 114 mmol/L (98-107); CHOLESTEROL 195 mg/dL (<200); CREATININE 0.64 mg/dL (0.55-1.02); PHOSPHOROUS 2.7 mg/dL (2.5-4.9); POTASSIUM 3.6 mmol/L (3.5-5.1); SGOT/AST 15 IU/L (3-35); SGPT/ALT 19 U/L (12-78); SODIUM 141 mmol/L (136-145); TOTAL PROTEIN 6.1 gm/dL (6.4-8.2); TRIGLYCERIDES 164 mg/dl (<150); VLDL CHOLESTEROL 33 mg/dL (6-40)
[2019-05-08 07:14] LABS: ALKALINE PHOSPHATASE 60 U/L (45-117); FREE T4 1.13 ng/dl (0.76-1.46); HDL CHOLESTEROL 43 mg/dl (40-60); LDL CHOLESTEROL 119 mg/dL (9-159)
[2019-05-08 07:15] LABS: VITAMIN D, 25-HYDROXY 69.5 ng/mL (30-100)
[2019-05-08 08:00] VITALS: BP 152/88
[2019-05-08 12:00] VITALS: BP 127/71
--- NOTE | 2019-05-08 14:00 | NUR ---
PHYSICAL THERAPY PT EVAL COMPLETED TODAY ON LEVEL 4: FULL EVALUATION TO FOLLOW. REOCMMEND PT WHILE HERE TO ADDRESS DECREASED STRENGTH, BALANCE AND FUNCTIONAL MOBILITY . PT EVAL IS MODERATE COMPLEXITY: 19406. D/C RECOMMENDATIONS AT THIS TIME ARE HOME WITH HH AND FAMILY SUPPORT. THANK YOU FOR REFERRAL TRENT LEBLANC PT
[2019-05-08 16:00] VITALS: BP 132/73
[2019-05-08 20:00] VITALS: BP 151/73
--- NOTE | 2019-05-08 21:12 | NUR ---
PRN ANTIVERT GIVEN FOR PT COMPLAINTS OF DIZZYNESS. CALL LIGHT WITHIN REACH, WILL MONITOR
[2019-05-09] VITALS: BP 144/73
--- NOTE | 2019-05-09 04:10 | NUR ---
NOTIFIED DR. STEIN OF PATIENTS HEART RATE HITTING 150'S WITH EXERTION. PATIENT ASYMPTOMATIC AND SHE SAYS SHE'S BEEN TOLD IT HAPPENS BEFORE. SHE SAID SHES A LITTLE DIZZY, BUT THE ANTIVERT IS VERY EFFECTIVE AND SHE WOULDVE NEVER EVEN BEEN ABLE TO GET UP WITHOUT IT.
--- NOTE | 2019-05-09 06:51 | NUR ---
PRN ANTIVERT GIVEN FOR PT COMPLAINTS OF DIZZYNESS. CALL LIGHT WITHIN REACH, WILL MONITOR
[2019-05-09 12:00] VITALS: BP 147/82
[2019-05-09 16:00] VITALS: BP 115/53
[2019-05-09 20:00] VITALS: BP 133/66
--- NOTE | 2019-05-09 23:00 | NUR ---
PATIENT AT THIS TIME STATED THAT HER IV WAS BOTHERING HER DISCONTINUED AND RESTARTED IN THE LEFT FOREARM. 22 GAUGE. WILL MONITOR
[2019-05-10] VITALS: BP 123/63
[2019-05-10 06:39] LABS: BASO % 0.1 % (0.0-1.0); HEMATOCRIT 37.1 % (37.0-47.0); HEMOGLOBIN 12.5 g/dl (12.0-16.0); LYMPH # 1.4 10*3/uL (1.3-4.4); LYMPH % 9.6 % (27.0-41.0); MEAN CELL VOLUME 88.5 fl (81.0-99.0); MEAN CORPUSCULAR HGB 29.8 pg (27.0-31.0); MEAN CORPUSCULAR HGB CONC 33.7 g/dl (33.0-37.0); MEAN PLATELET VOLUME 10.3 fl (9.6-12.3); MONO # 0.2 10*3/uL (0.1-1.0); MONO % 1.3 % (3.0-9.0); NEUT % 88.4 % (47.0-73.0); PLATELET COUNT AUTOMATED 345 10*3/uL (130-400); RED BLOOD COUNT 4.19 10*6/uL (4.10-5.10); WHITE BLOOD COUNT 14.7 10*3/uL (4.8-10.8)
[2019-05-10 07:00] LABS: CREATININE 0.82 mg/dL (0.55-1.02)
[2019-05-10 08:00] VITALS: BP 111/68
--- NOTE | 2019-05-10 09:00 | NUR ---
Stem Maker in to talk to patient. Patient states lives at home with family. There are few steps in the home. Physician: tyshawn schmitz Pharmacy: [facility] [place]: none Patient's level of ADLs: INDEPENDENT Patient has working utilities: all working DME: none Follow-up physician's appointment after d/c: will be made by hospitalist nurse director upon discharge Does patient want to access PORTAL?: no Discharge plan discussed with patient, she states she lives at home, is independent in adls and ambulation she states she will be returning home when able and denies any home needs. ANA BROOKS
--- NOTE | 2019-05-10 09:07 | NUR ---
PHYSICAL THERAPY Nursing screen received and chart reviewed. PT evaluation completed on 05/08/19. Thank you for referral. Marilyn Downs,PT,DPT
--- NOTE | 2019-05-10 09:40 | NUR ---
PHYSICAL THERAPY Patient seen this am 1;1 for therapy visit and was supine in bed with nurse present upon therapist arrival. Patient reports repeated bouts of increased dizziness, including c/o of room spinning while rolling side to side with R side worse than L side. Patient also feels dizzy during some standing activities, especially those requiring B cervical rotation. Patient educated on Be Test and agreed to perform with emphasis on reducing / eliminating c/o of dizziness / vertigo. Patient tolerated 4 step Be Test, experiencing severe Vertigo during step 3 and 4, with several loud screams, and all signs / symptoms resolved within 30-40 seconds each step. Patient voiced no c/o's following testing and was able to complete several standing 180 / 360 turns reporting no new c/o's. Patient stated she was happy with the results and remained seated EOB with call light and tray table. Will continue per POC as tolerated. Vince Novoa, VALLEZ FILTER OPERATOR
--- NOTE | 2019-05-10 10:20 | NUR ---
Occupational therapy orders received and OT eval completed in full on floor 4 with full eval and POC to follow. Patient precautions include fall risk, vertigo, and dizziness. Per OT eval and chart review, OTR recommends home with 24/7 supervision for safety. Patient would benefit from continued OT treatment to increase safety, higher level ADLs, and functional mobility/transfers. Patient complexity is low, [id number]. Thank you for the referral. Gwen Kamara OTR/L
[2019-05-10 12:00] VITALS: BP 118/56
[2019-05-10] MEDS ORDERED: MECLIZINE HCL25 M2 PO (13:04)
[2019-05-10] MEDS ORDERED: PREDNISONE10 MG PO (13:04)
--- NOTE | 2019-05-10 14:25 | NUR ---
Discharge instructions reviewed with patient/family. Patient receptive and verbalizes understanding. Follow-up care arranged. Written instructions given to patient/family. JESUS WEST
--- NOTE | 2019-05-10 15:43 | NUR ---
PHYSICAL THERAPY CO-SIGN I approve of the Physical Therapy notes written above. SOPHIE NASSAR PT,DPT
== END 2019-05-10 14:25 | disposition home or self-care (01) | DRG 149 ==
LOC: ED 12:19 → EDHOLD 15:52 → 4E 15:52
PROVIDERS: Emergency Medicine; Registered Nurse; ADMIT Internal Medicine
DX: H81.10 Benign paroxysmal vertigo, unspecified ear (principal); E44.0 Moderate protein-calorie malnutrition; F41.1 Generalized anxiety disorder; S00.83XA Contusion of other part of head, initial encounter; J44.9 Chronic obstructive pulmonary disease, unspecified; I10 Essential (primary) hypertension; K21.9 Gastro-esophageal reflux disease without esophagitis; E78.00 Pure hypercholesterolemia, unspecified; W18.30XA Fall on same level, unspecified, initial encounter; Y93.89 Activity, other specified; Y92.098 Other place in other non-institutional residence as the place of occurrence of the external cause; Y99.8 Other external cause status; Z90.49 Acquired absence of other specified parts of digestive tract; Z87.891 Personal history of nicotine dependence; Z80.8 Family history of malignant neoplasm of other organs or systems; Z79.899 Other long term (current) drug therapy; Z79.52 Long term (current) use of systemic steroids; Z68.23 Body mass index [BMI] 23.0-23.9, adult

== ENCOUNTER 2019-06-03 10:32 | Inpatient (IN) | payer MEDICARE, MEDICAID ==
[~2019-06-03] VITALS: Ht 157.5 cm; Wt 59.7 kg
--- NOTE | ~2019-06-03 | EKG ---
[place], [place] ELECTROCARDIOGRAM REPORT NAME: AMAN CATALAN UNIT #: [id number] ROOM: 406 DOCTOR: CHARLENE DRAFT REPORT BIRTHDATE: [birth year] [facility] Test Date: 2019-06-04 Test Time: 12:22:35 Pat Name: AMAN CATALAN Department: Room: [facility] 1 Gender: F Citrix Administrator: : 1960 Requested By: GINO MCKAY Order Number: [id number] Reading MD: Marcos Stokes MD Measurements Intervals [place] Rate: 99 P: 58 [place]: 148 QRS: 56 QRSD: 91 T: 23 QT: 368 QTc: 473 Interpretive Statements Sinus rhythm Abnormal R-wave progression, early transition Compared to ECG 06/03/2019 17:10:52 No significant changes Electronically Signed On 06-04-2019 14:22:52 PDT by Marcos Stokes MD CM:EKGRPT:ELECTROCARDIOGRAM REPORT 1222 1422 GINO CHANG DRAFT REPORT GINO MCKAY
--- NOTE | ~2019-06-03 | EKG ---
[place], [place] ELECTROCARDIOGRAM REPORT NAME: AMAN CATALAN UNIT #: [id number] ROOM: 406 DOCTOR: CHARLENE DRAFT REPORT BIRTHDATE: [birth year] [facility] Test Date: 2019-06-03 Test Time: 13:33:36 Pat Name: AMAN CATALAN Department: Room: 406 Gender: F Corset Maker: : 1960 Requested By: SHEBA GARCÍA Order Number: [id number] Reading MD: Marcos Stokes MD Measurements Intervals [place] Rate: 69 P: 56 [place]: 162 QRS: 54 QRSD: 91 T: 34 QT: 415 QTc: 445 Interpretive Statements Sinus rhythm Compared to ECG 05/07/2019 23:48:42 No significant changes Electronically Signed On 06-04-2019 5:58:39 PDT by Marcos Stokes MD CM:EKGRPT:ELECTROCARDIOGRAM REPORT [id number] SHEBA CHANG DRAFT REPORT SHEBA GARCÍA M.D.
--- NOTE | ~2019-06-03 | EKG ---
[place], [place] ELECTROCARDIOGRAM REPORT NAME: AMAN CATALAN UNIT #: [id number] ROOM: 406 DOCTOR: CHARLENE DRAFT REPORT BIRTHDATE: [birth year] [facility] Test Date: 2019-06-03 Test Time: 17:10:52 Pat Name: AMNA CATALAN Department: Room: 406 Gender: F [employer] Off Bearer: : 1960 Requested By: SHEBA GARCÍA Order Number: [id number] Reading MD: Marcos Stokes MD Measurements Intervals [place] Rate: 90 P: 65 IA: 156 QRS: 55 QRSD: 91 T: 34 QT: 374 QTc: 458 Interpretive Statements Sinus rhythm Compared to ECG 05/07/2019 23:48:42 No significant changes Electronically Signed On 06-04-2019 6:00:22 PDT by Marcos Stokes MD CM:EKGRPT:ELECTROCARDIOGRAM REPORT [id number] SHEBA CHANG DRAFT REPORT SHEBA GARCÍA M.D.
--- NOTE | ~2019-06-03 | EKG ---
[place], [place] ELECTROCARDIOGRAM REPORT NAME: AMAN CATALAN UNIT #: [id number] ROOM: 406 DOCTOR: CHARLENE DRAFT REPORT BIRTHDATE: [birth year] [facility] Test Date: 2019-06-04 Test Time: 20:22:53 Pat Name: AMAN CATALAN Department: Room: [facility] 1 Gender: F Community Health Nurse: Miguel Giron : 1960 Requested By: VANITA STEIN Order Number: [id number] Reading MD: Jackie Gupta MD Measurements Intervals [place] Rate: 72 P: 64 CT: 171 QRS: 66 QRSD: 94 T: 53 QT: 397 QTc: 435 Interpretive Statements Sinus rhythm Compared to ECG 06/04/2019 12:22:35 No significant changes Electronically Signed On 06-07-2019 9:58:50 PDT by Jackie Gupta MD CM:EKGRPT:ELECTROCARDIOGRAM REPORT [id number] VANITA CHANG DRAFT REPORT VANITA STEIN
--- NOTE | ~2019-06-03 | EKG ---
[place], [place] ELECTROCARDIOGRAM REPORT NAME: AMAN CATALAN UNIT #: [id number] ROOM: 406 DOCTOR: CHARLENE DRAFT REPORT BIRTHDATE: [birth year] [facility] Test Date: 2019-06-03 Test Time: 10:34:13 Pat Name: AMAN CATALAN Department: Room: 406 Gender: F Environmental Service Aide: : 1960 Requested By: SHEBA GARCÍA Order Number: [id number] Reading MD: Marcos Stokes MD Measurements Intervals [place] Rate: 72 P: 59 MA: 155 QRS: 60 QRSD: 95 T: 46 QT: 401 QTc: 439 Interpretive Statements Sinus rhythm Compared to ECG 05/07/2019 23:48:42 No significant changes Electronically Signed On 06-04-2019 5:58:07 PDT by Marcos Stokes MD CM:EKGRPT:ELECTROCARDIOGRAM REPORT [id number] SHEBA CHANG DRAFT REPORT SHBEA GARCÍA M.D.
[~2019-06-03 10:32] MED LIST changes: +LISINOPRIL-HCT1 EACH PO; +MECLIZINE HCL25 M2 PO; +VITAMIN D5000 UNIT PO
[2019-06-03 10:51] LABS: BASO % 0.1 % (0.0-1.0); EOS # 0.1 10*3/uL (0.0-0.4); HEMATOCRIT 39.2 % (37.0-47.0); HEMOGLOBIN 13.4 g/dl (12.0-16.0); LYMPH # 2.4 10*3/uL (1.3-4.4); LYMPH % 34.3 % (27.0-41.0); MEAN CELL VOLUME 88.9 fl (81.0-99.0); MEAN CORPUSCULAR HGB 30.4 pg (27.0-31.0); MEAN CORPUSCULAR HGB CONC 34.2 g/dl (33.0-37.0); MEAN PLATELET VOLUME 9.9 fl (9.6-12.3); MONO # 0.6 10*3/uL (0.1-1.0); MONO % 9.1 % (3.0-9.0); NEUT # 3.8 10*3/uL (2.3-7.9); NEUT % 54.2 % (47.0-73.0); PLATELET COUNT AUTOMATED 394 10*3/uL (130-400); RED BLOOD COUNT 4.41 10*6/uL (4.10-5.10); RED CELL DISTRI WIDTH 13.8 % (0-14.5); WHITE BLOOD COUNT 7.1 10*3/uL (4.8-10.8)
[2019-06-03 10:52] VITALS: BP 144/79
[2019-06-03 11:01] LABS: ACT PARTIAL THROMBO TIME 27.6 SECONDS (20.0-32.1); INTERNATIONAL NORM RATIO 0.9 (2.0-3.5)
[2019-06-03 11:06] LABS: ALKALINE PHOSPHATASE 78 U/L (45-117); BUN 21 mg/dl (7-24); CHLORIDE 106 mmol/L (98-107); CREATININE 0.87 mg/dL (0.55-1.02); POTASSIUM 3.8 mmol/L (3.5-5.1); SGOT/AST 16 IU/L (3-35); SGPT/ALT 25 U/L (12-78); SODIUM 137 mmol/L (136-145); TOTAL PROTEIN 7.6 gm/dL (6.4-8.2)
[2019-06-03 11:08] LABS: TROPONIN I < 0.015 ng/ml (<0.045)
[2019-06-03 11:46] VITALS: BP 137/76
[2019-06-03 12:20] VITALS: BP 128/75
[2019-06-03 13:43] VITALS: BP 151/74
--- NOTE | 2019-06-03 13:43 | NUR ---
A 59, admitted to , under the services of JOSE LUIS Thomas DO with a diagnosis of SYNCOPE,CHEST PAIN. Chief complaint is SHORTNESS OF BREATH. Patient arrived via stretcher from ER. Monitor applied. Initial assessment completed. Vital signs taken and recorded. JOSE LUIS THOMAS DO notified of admission to the unit. Orders received. See assessment for past medical history, medications and allergies. Patient and/or family oriented to unit. [facility] visitation policy reviewed. Clothing/patient valuable form completed. BIBI ARCHER
--- NOTE | 2019-06-03 14:30 | NUR ---
[facility] AWARE OF NEW CONSULT.
--- NOTE | 2019-06-03 14:40 | NUR ---
DR MAGAÑA AWARE THAT HOME MEDICATIONS ARE UTD.
[2019-06-03 16:00] VITALS: BP 149/69
--- NOTE | 2019-06-03 16:59 | NUR ---
PATIENT REFUSED FLU SHOT.EDUCATION GIVEN TO PATIENT- STILL REFUSED.
[2019-06-03 20:00] VITALS: BP 108/59
--- NOTE | 2019-06-03 22:20 | NUR ---
PATIENT RESTING COMFORTABLY IN BED. VOICES NO COMPLAINTS AT THIS TIME. RESPIRATIONS EASY,NON LABORED. PATIENT AWARE SHE IS TO BE NPO AT MIDNIGHT FOR STRESS TEST IN THE MORNING. BED IN LOWEST POSITION, CALL LIGHT WITHIN REACH, WILL CONTINUE TO MONITOR.
[2019-06-04] VITALS: BP 134/72
--- NOTE | 2019-06-04 04:30 | NUR ---
PATIENT SLEEPING. NO SIGNS OF DISTRESS. RESPIRATIONS EASY,NON LABORED. PATIENT REMAINS NPO FOR STRESS TEST. BED IN LOWEST POSITION. CALL LIGHT WITHIN REACH. WILL CONTINUE TO MONITOR.
[2019-06-04 04:52] VITALS: BP 126/58
[2019-06-04 07:33] LABS: BASO % 0.5 % (0.0-1.0); EOS # 0.1 10*3/uL (0.0-0.4); EOS % 2.3 % (1.0-4.0); HEMATOCRIT 35.2 % (37.0-47.0); HEMOGLOBIN 11.6 g/dl (12.0-16.0); MEAN CELL VOLUME 90.3 fl (81.0-99.0); MEAN CORPUSCULAR HGB 29.7 pg (27.0-31.0); MEAN PLATELET VOLUME 9.9 fl (9.6-12.3); MONO # 0.5 10*3/uL (0.1-1.0); MONO % 8.2 % (3.0-9.0); NEUT # 3.4 10*3/uL (2.3-7.9); NEUT % 55.8 % (47.0-73.0); PLATELET COUNT AUTOMATED 316 10*3/uL (130-400); RED CELL DISTRI WIDTH 14.1 % (0-14.5)
[2019-06-04 07:39] LABS: ACT PARTIAL THROMBO TIME 26.5 SECONDS (20.0-32.1); INTERNATIONAL NORM RATIO 0.9 (2.0-3.5)
[2019-06-04 07:45] LABS: BUN 19 mg/dl (7-24); CHLORIDE 110 mmol/L (98-107); CREATININE 0.76 mg/dL (0.55-1.02); PHOSPHOROUS 3.4 mg/dL (2.5-4.9); SODIUM 140 mmol/L (136-145)
[2019-06-04 08:00] VITALS: BP 130/70; BP 153/78
--- NOTE | 2019-06-04 09:00 | NUR ---
Patient out of her room for a stress test and not available for an occupational thrapy evaluation. Karen Myers OTR/l
--- NOTE | 2019-06-04 09:00 | NUR ---
Shirt Closer in to see patient. She is currently not in her room. Will follow up at a later time.
--- NOTE | 2019-06-04 09:30 | NUR ---
INFORMED CONSENT OBTAINED FOR LEXISCAN NUCLEAR STRESS TEST WITH DR. GASTON. RESTING EKG NSR WITH A RESTING HR OF 77 WITH BP OF 122/60. LUNGS CLEAR WITH SPO2 OF 99% ON ROOM AIR. PT COMPLETED A 1:00 LEXISCAN PROTOCOL RECEIVING LEXISCAN 0.4 MG IV OVER 10 SECONDS. HAD NO CHEST PAIN OR ANY EKG CHANGES. HAD SHORTNESS OF BREATH THAT WAS RELIEVED IN RECOVERY. RECOVERY SPO2 OF 100%. HAD A PEAK HR OF 122 WITH BP OF 110/50. LAST RECOVERY HR OF 99 WITH BP OF 124/56. AWAITING SCANNING IN STABLE CONDITION.
[2019-06-04 12:00] VITALS: BP 136/66
--- NOTE | 2019-06-04 12:36 | NUR ---
PHYSICAL THERAPY Physical therapy evaluation attempted. Patient is tired/resting and refuses PT evaluation at this time. Patient requesting PT return at a later date to complete PT evaluation. Thank you. Marilyn Downs,PT,DPT
--- NOTE | 2019-06-04 12:54 | NUR ---
Patient returned from stress test and reports she is too tired for therapy. Patient request therapy be attempted at a later date. Karen Myers OTR/l
--- NOTE | 2019-06-04 15:17 | NUR ---
Automotive Specialty Technician in to talk to patient. Patient states lives at home alone with her family checking in on her. There are 0 steps in the home. Physician: Sumit Kim [facility]: [facility] Home health services: none Patient's level of ADLs: INDEPENDENT Patient has working utilities: yes DME: none Follow-up physician's appointment after d/c: will be made by the hospitalist nurse director upon discharge Does patient want to access PORTAL?: no Discharge plan discussed with patient. She is independent in her ADLs and ambulation. She lives at home alone with her family checking in on her. Discussed home health care services and she denies any home needs at this time. When medically stable she will be discharged to home. Her sister or [id number] will provide transportation on discharge. SOPHIE BURGESS
[2019-06-04 16:17] VITALS: BP 123/65
--- NOTE | 2019-06-04 19:05 | NUR ---
PT C/O OF CHEST HEAVINESS,BILATERAL TINGLING IN HANDS @ 1851. V/S B/P 142/62 P 88, R 20, 100% ROOM AIR. CALLED DR. STEIN @ 1857. ORDERS GIVEN TROPONIN,BMP,MG,PHOS. AND EKG NOW.
--- NOTE | 2019-06-04 19:05 | NUR ---
ARRIVED ON SHIFT, INTRODUCED TO PATIENT, BEDSIDE REPORT RECEIVED, NO NEEDS VOICED AT THIS TIME. WHITE BOARD UPDATED.
[2019-06-04 19:40] LABS: ALKALINE PHOSPHATASE 70 U/L (45-117); BUN 19 mg/dl (7-24); CHLORIDE 107 mmol/L (98-107); CREATININE 0.86 mg/dL (0.55-1.02); POTASSIUM 3.8 mmol/L (3.5-5.1); SODIUM 139 mmol/L (136-145)
[2019-06-04 19:41] LABS: TROPONIN I < 0.015 ng/ml (<0.045)
[2019-06-04 20:00] VITALS: BP 130/70
--- NOTE | 2019-06-04 20:15 | NUR ---
PATIENT C/O NAUSEA, MEDICATED WITH ZOFRAN ORDERED.
--- NOTE | 2019-06-04 21:15 | NUR ---
PATIENT REPORTS GOOD EFFECT FROM ZOFRAN GIVEN.
--- NOTE | 2019-06-04 23:40 | NUR ---
24 HR chart check completed.
[2019-06-05] VITALS: BP 122/63
--- NOTE | 2019-06-05 02:00 | NUR ---
Patient sleeping. Respirations relaxed and easy. Siderails up X 2, CALL LIGHT WITHIN REACH, BED IN LOW POSITION, WHEELLOCKS ON [place]
[2019-06-05 08:00] VITALS: BP 112/80
--- NOTE | 2019-06-05 09:00 | NUR ---
PT REFUSED LOVENOX DESPITE NURSING EDUCATION.
[2019-06-05 12:00] VITALS: BP 138/67
[2019-06-05] MEDS ORDERED: MECLIZINE HCL25 M2 PO (12:46)
[2019-06-05] MEDS ORDERED: CITALOPRAM10 MG PO (12:46)
--- NOTE | 2019-06-05 13:37 | NUR ---
Discharge instructions reviewed with patient/family. Patient receptive and verbalizes understanding. Follow-up care arranged. Written instructions given to patient/family. HAY ENRIQUE.
== END 2019-06-05 13:37 | disposition home or self-care (01) | DRG 880 ==
LOC: ED 10:32 → 4E 12:35 → EDHOLD 12:35 → 4E 12:47
PROVIDERS: Emergency Medicine; Internal Medicine; Student in an Organized Health Care Education/Training Program; ADMIT Family Medicine
PROC: 4A02XM4 Measurement of Cardiac Total Activity, External Approach (ICD-10-PCS; principal; 2019-06-04)
PROC: 3E073KZ Introduction of Other Diagnostic Substance into Coronary Artery, Percutaneous Approach (ICD-10-PCS; principal; 2019-06-04)
DX: F41.1 Generalized anxiety disorder (principal); R06.02 Shortness of breath; R53.1 Weakness; R11.2 Nausea with vomiting, unspecified; J44.9 Chronic obstructive pulmonary disease, unspecified; I10 Essential (primary) hypertension; K21.9 Gastro-esophageal reflux disease without esophagitis; D64.9 Anemia, unspecified; E78.00 Pure hypercholesterolemia, unspecified; R55 Syncope and collapse; M19.90 Unspecified osteoarthritis, unspecified site; E55.9 Vitamin D deficiency, unspecified; E78.5 Hyperlipidemia, unspecified; Z98.51 Tubal ligation status; Z90.49 Acquired absence of other specified parts of digestive tract; Z87.891 Personal history of nicotine dependence; Z82.49 Family history of ischemic heart disease and other diseases of the circulatory system; Z80.8 Family history of malignant neoplasm of other organs or systems; Z83.3 Family history of diabetes mellitus; Z79.899 Other long term (current) drug therapy; H81.10 Benign paroxysmal vertigo, unspecified ear

== ENCOUNTER → 2019-07-23 | Outpatient (CLI) | payer MEDICARE, MEDICAID ==
[~2019-07-23] MED LIST changes: +CITALOPRAM10 MG PO
[2019-07-23 09:27] LABS: BASO % 0.6 % (0.0-1.0); EOS # 0.2 10*3/uL (0.0-0.4); EOS % 2.8 % (1.0-4.0); HEMATOCRIT 37.7 % (37.0-47.0); HEMOGLOBIN 12.3 g/dl (12.0-16.0); LYMPH # 2.7 10*3/uL (1.3-4.4); LYMPH % 40.5 % (27.0-41.0); MEAN CELL VOLUME 90.2 fl (81.0-99.0); MEAN CORPUSCULAR HGB 29.4 pg (27.0-31.0); MEAN CORPUSCULAR HGB CONC 32.6 g/dl (33.0-37.0); MEAN PLATELET VOLUME 10.7 fl (9.6-12.3); MONO # 0.6 10*3/uL (0.1-1.0); MONO % 8.6 % (3.0-9.0); NEUT # 3.2 10*3/uL (2.3-7.9); NEUT % 47.4 % (47.0-73.0); PLATELET COUNT AUTOMATED 330 10*3/uL (130-400); RED BLOOD COUNT 4.18 10*6/uL (4.10-5.10); RED CELL DISTRI WIDTH 13.3 % (0-14.5); WHITE BLOOD COUNT 6.8 10*3/uL (4.8-10.8)
[2019-07-23 09:56] LABS: ALBUMIN 3.9 gm/dl (3.1-4.5); ALKALINE PHOSPHATASE 59 U/L (45-117); BUN 29 mg/dl (7-24); CHLORIDE 106 mmol/L (98-107); CHOLESTEROL 201 mg/dL (<200); CREATININE 0.72 mg/dL (0.55-1.02); HDL CHOLESTEROL 53 mg/dl (40-60); LDL CHOLESTEROL 126 mg/dL (9-159); SGOT/AST 16 IU/L (3-35); SGPT/ALT 28 U/L (12-78); SODIUM 139 mmol/L (136-145); TOTAL PROTEIN 7.2 gm/dL (6.4-8.2); TRIGLYCERIDES 110 mg/dl (<150); VLDL CHOLESTEROL 22 mg/dL (6-40)
== END | disposition home or self-care (01) ==
LOC: LAB 08:32
PROVIDERS: Nurse Practitioner Family
DX: I10 Essential (primary) hypertension (principal); E78.2 Mixed hyperlipidemia; E55.9 Vitamin D deficiency, unspecified; J44.9 Chronic obstructive pulmonary disease, unspecified

== ENCOUNTER 2020-04-20 15:55 | Emergency (ER) | payer OTHER, MEDICAID ==
[~2020-04-20] VITALS: Ht 157.4 cm; Wt 61.2 kg
[2020-04-20] MEDS ORDERED: ANTIBIOTIC28.4 GM T (16:09)
[2020-04-20] MEDS ORDERED: CEPHALEXIN500 M1 PO (16:09)
== END 2020-04-20 16:50 | disposition home or self-care (01) ==
LOC: ED 15:55
DX: S61.212A Laceration without foreign body of right middle finger without damage to nail, initial encounter (principal); Z23 Encounter for immunization; W45.8XXA Other foreign body or object entering through skin, initial encounter; Y93.89 Activity, other specified; Y92.89 Other specified places as the place of occurrence of the external cause; Y99.8 Other external cause status

== ENCOUNTER → 2020-05-04 | Outpatient (CLI) | payer OTHER, MEDICAID ==
[~2020-05-04] MED LIST changes: +ANTIBIOTIC28.4 GM T; +CEPHALEXIN500 M1 PO
== END | disposition home or self-care (01) ==
LOC: RAD 12:49
PROVIDERS: ATTEND Nurse Practitioner Family
DX: R05 Cough (principal); R06.2 Wheezing; M47.894 Other spondylosis, thoracic region; M19.012 Primary osteoarthritis, left shoulder; M19.011 Primary osteoarthritis, right shoulder

== ENCOUNTER → 2020-08-13 | Outpatient (CLI) | payer OTHER, MEDICAID | END | disposition home or self-care (01) | LOC: RAD 10:57 | PROVIDERS: ATTEND Nurse Practitioner Family | DX: K59.00 Constipation, unspecified (principal); R14.0 Abdominal distension (gaseous); R10.84 Generalized abdominal pain; Z90.49 Acquired absence of other specified parts of digestive tract ==

== ENCOUNTER 2020-10-18 12:24 | Observation (INO) | payer OTHER, MEDICAID ==
[~2020-10-18] VITALS: Ht 157.5 cm; Wt 70.5 kg
[2020-10-18 12:34] VITALS: BP 144/89
[2020-10-18 13:05] VITALS: BP 100/60
[2020-10-18 13:05] LABS: BASO # 0.1 10*3/uL (0.0-0.1); BASO % 0.5 % (0.0-1.0); EOS # 0.1 10*3/uL (0.0-0.4); EOS % 1.2 % (1.0-4.0); HEMATOCRIT 41.4 % (37.0-47.0); LYMPH # 3.1 10*3/uL (1.3-4.4); LYMPH % 34.1 % (27.0-41.0); MEAN CELL VOLUME 85.7 fl (81.0-99.0); MEAN CORPUSCULAR HGB CONC 33.8 g/dl (33.0-37.0); MEAN PLATELET VOLUME 10.5 fl (9.6-12.3); MONO # 0.8 10*3/uL (0.1-1.0); MONO % 8.9 % (3.0-9.0); NEUT # 5.1 10*3/uL (2.3-7.9); PLATELET COUNT AUTOMATED 369 10*3/uL (130-400); RED BLOOD COUNT 4.83 10*6/uL (4.10-5.10); RED CELL DISTRI WIDTH 14.2 % (0-14.5); WHITE BLOOD COUNT 9.2 10*3/uL (4.8-10.8)
[2020-10-18 13:16] LABS: ACT PARTIAL THROMBO TIME 26.1 SECONDS (20.0-32.1); INTERNATIONAL NORM RATIO 0.9 (2.0-3.5)
[2020-10-18 13:28] LABS: ALBUMIN 4.1 gm/dl (3.1-4.5); ALKALINE PHOSPHATASE 84 U/L (45-117); BUN 19 mg/dl (7-24); CHLORIDE 106 mmol/L (98-107); CREATININE 0.69 mg/dL (0.55-1.02); LIPASE 107 U/L (73-393); POTASSIUM 3.8 mmol/L (3.5-5.1); SGOT/AST 13 IU/L (3-35); SGPT/ALT 22 U/L (12-78); SODIUM 138 mmol/L (136-145); TOTAL PROTEIN 7.8 gm/dL (6.4-8.2)
[2020-10-18 13:30] LABS: TROPONIN I < 0.015 ng/ml (<0.045)
[2020-10-18 14:08] VITALS: BP 106/69
[2020-10-18 14:31] LABS: BILIRUBIN Negative (Negative); BLOOD Negative (Negative); CLARITY Clear (Clear); COLOR Yellow (Yellow); GLUCOSE Negative (Negative); KETONE Negative (Negative); LEUKO ESTERASE Negative (Negative); NITRITE Negative (Negative); SPECIFIC GRAVITY 1.015 (1.001-1.030)
[2020-10-18 14:42] LABS: BACTERIA TRACE
[2020-10-18 17:36] VITALS: BP 136/72
[2020-10-18 18:00] VITALS: BP 130/76
[2020-10-19] VITALS: BP 131/68
[2020-10-19] MEDS ORDERED: BREO ELLIPTA 11 EACH INH (06:28)
[2020-10-19 06:35] LABS: BASO % 0.1 % (0.0-1.0); HEMATOCRIT 41.7 % (37.0-47.0); LYMPH # 1.6 10*3/uL (1.3-4.4); LYMPH % 9.5 % (27.0-41.0); MEAN CELL VOLUME 85.5 fl (81.0-99.0); MEAN CORPUSCULAR HGB 28.5 pg (27.0-31.0); MEAN CORPUSCULAR HGB CONC 33.3 g/dl (33.0-37.0); MEAN PLATELET VOLUME 10.9 fl (9.6-12.3); MONO # 0.2 10*3/uL (0.1-1.0); MONO % 0.9 % (3.0-9.0); NEUT # 14.8 10*3/uL (2.3-7.9); PLATELET COUNT AUTOMATED 388 10*3/uL (130-400); RED BLOOD COUNT 4.88 10*6/uL (4.10-5.10); RED CELL DISTRI WIDTH 14.3 % (0-14.5); WHITE BLOOD COUNT 16.6 10*3/uL (4.8-10.8)
[2020-10-19] MEDS ORDERED: AMMONIUM LACTA227 GM T (06:41)
[2020-10-19] MEDS ORDERED: CETIRIZINE HYDR10 MG PO (06:41)
[2020-10-19] MEDS ORDERED: PAROXETINE HCL30 MG PO (06:41)
[2020-10-19 06:51] LABS: BUN 20 mg/dl (7-24); CHLORIDE 109 mmol/L (98-107); CHOLESTEROL 244 mg/dL (<200); CREATININE 0.76 mg/dL (0.55-1.02); POTASSIUM 3.9 mmol/L (3.5-5.1); SODIUM 140 mmol/L (136-145); TRIGLYCERIDES 66 mg/dl (<150); VLDL CHOLESTEROL 13 mg/dL (6-40)
[2020-10-19 06:52] LABS: HDL CHOLESTEROL 65 mg/dl (40-60); LDL CHOLESTEROL 166 mg/dL (9-159)
[2020-10-19 07:39] LABS: VITAMIN D, 25-HYDROXY 65.5 ng/mL (30-100)
[2020-10-19 08:00] VITALS: BP 136/70; BP 140/87
[2020-10-19 12:00] VITALS: BP 114/79
[2020-10-19 16:00] VITALS: BP 153/86
[2020-10-20] VITALS: BP 119/59
[2020-10-20 06:29] LABS: MEAN CELL VOLUME 86.6 fl (81.0-99.0); MEAN CORPUSCULAR HGB 28.8 pg (27.0-31.0); MEAN CORPUSCULAR HGB CONC 33.3 g/dl (33.0-37.0); MEAN PLATELET VOLUME 11.2 fl (9.6-12.3); PLATELET COUNT AUTOMATED 383 10*3/uL (130-400); RED BLOOD COUNT 4.62 10*6/uL (4.10-5.10); RED CELL DISTRI WIDTH 14.6 % (0-14.5); WHITE BLOOD COUNT 29.8 10*3/uL (4.8-10.8)
[2020-10-20 06:39] LABS: BUN 21 mg/dl (7-24); CHLORIDE 109 mmol/L (98-107); CREATININE 0.72 mg/dL (0.55-1.02); POTASSIUM 3.8 mmol/L (3.5-5.1); SODIUM 141 mmol/L (136-145)
[2020-10-20 07:53] LABS: PLATELET SUFFICIENCY NORMAL (NORMAL); TOTAL CELLS COUNTED 100 #CELLS
[2020-10-20 08:00] VITALS: BP 162/73
[2020-10-20 12:00] VITALS: BP 129/77
[2020-10-20 16:00] VITALS: BP 155/86
[2020-10-20 20:00] VITALS: BP 140/80
[2020-10-21] VITALS: BP 138/70
[2020-10-21 06:55] LABS: BASO % 0.1 % (0.0-1.0); HEMATOCRIT 38.2 % (37.0-47.0); LYMPH # 2.1 10*3/uL (1.3-4.4); LYMPH % 10.7 % (27.0-41.0); MEAN CELL VOLUME 86.8 fl (81.0-99.0); MEAN CORPUSCULAR HGB 29.1 pg (27.0-31.0); MEAN CORPUSCULAR HGB CONC 33.5 g/dl (33.0-37.0); MEAN PLATELET VOLUME 11.2 fl (9.6-12.3); MONO # 0.5 10*3/uL (0.1-1.0); MONO % 2.7 % (3.0-9.0); NEUT # 16.9 10*3/uL (2.3-7.9); NEUT % 85.2 % (47.0-73.0); PLATELET COUNT AUTOMATED 354 10*3/uL (130-400); RED CELL DISTRI WIDTH 14.5 % (0-14.5); WHITE BLOOD COUNT 19.9 10*3/uL (4.8-10.8)
[2020-10-21 07:06] LABS: BUN 26 mg/dl (7-24); CHLORIDE 107 mmol/L (98-107); CREATININE 0.73 mg/dL (0.55-1.02); SODIUM 142 mmol/L (136-145)
[2020-10-21 08:00] VITALS: BP 153/93
[2020-10-21 12:00] VITALS: BP 135/71
[2020-10-21 16:00] VITALS: BP 147/75
[2020-10-21 20:00] VITALS: BP 118/61
[2020-10-22] VITALS: BP 119/61
[2020-10-22 06:25] LABS: BASO % 0.3 % (0.0-1.0); LYMPH # 3.1 10*3/uL (1.3-4.4); LYMPH % 20.9 % (27.0-41.0); MEAN CORPUSCULAR HGB 28.9 pg (27.0-31.0); MEAN CORPUSCULAR HGB CONC 33.3 g/dl (33.0-37.0); MEAN PLATELET VOLUME 10.9 fl (9.6-12.3); MONO # 1.2 10*3/uL (0.1-1.0); MONO % 7.9 % (3.0-9.0); NEUT # 10.3 10*3/uL (2.3-7.9); NEUT % 69.2 % (47.0-73.0); PLATELET COUNT AUTOMATED 341 10*3/uL (130-400); RED CELL DISTRI WIDTH 14.3 % (0-14.5); WHITE BLOOD COUNT 14.9 10*3/uL (4.8-10.8)
[2020-10-22 06:34] LABS: BUN 28 mg/dl (7-24); CHLORIDE 107 mmol/L (98-107); CREATININE 0.73 mg/dL (0.55-1.02); SODIUM 141 mmol/L (136-145)
[2020-10-22 08:00] VITALS: BP 128/60
[2020-10-22 12:00] VITALS: BP 109/57
[2020-10-22 16:00] VITALS: BP 119/69
[2020-10-22 20:00] VITALS: BP 138/71
[2020-10-23] VITALS: BP 121/84
[2020-10-23 06:38] LABS: BUN 27 mg/dl (7-24); CHLORIDE 105 mmol/L (98-107); CREATININE 0.84 mg/dL (0.55-1.02); POTASSIUM 4.3 mmol/L (3.5-5.1); SODIUM 140 mmol/L (136-145)
[2020-10-23 06:42] LABS: HEMATOCRIT 38.5 % (37.0-47.0); MEAN CELL VOLUME 86.9 fl (81.0-99.0); MEAN CORPUSCULAR HGB 28.9 pg (27.0-31.0); MEAN CORPUSCULAR HGB CONC 33.2 g/dl (33.0-37.0); MEAN PLATELET VOLUME 10.6 fl (9.6-12.3); PLATELET COUNT AUTOMATED 360 10*3/uL (130-400); RED BLOOD COUNT 4.43 10*6/uL (4.10-5.10); RED CELL DISTRI WIDTH 14.4 % (0-14.5); WHITE BLOOD COUNT 16.8 10*3/uL (4.8-10.8)
[2020-10-23 07:19] LABS: OVALOCYTES FEW; PLATELET SUFFICIENCY NORMAL (NORMAL); TOTAL CELLS COUNTED 100 #CELLS
[2020-10-23 08:00] VITALS: BP 142/71
[2020-10-23] MEDS ORDERED: MUCUS RELIEF600 MG PO (11:31)
[2020-10-23] MEDS ORDERED: PREDNISONE10 MG PO (11:33)
== END 2020-10-23 12:15 | disposition home or self-care (01) ==
LOC: ED 12:24 → EDHOLD 16:32 → 4E 17:44
PROVIDERS: Emergency Medicine; Internal Medicine; ADMIT Internal Medicine; ATTEND Internal Medicine
DX: R07.89 Other chest pain (principal); J44.1 Chronic obstructive pulmonary disease with (acute) exacerbation; R06.82 Tachypnea, not elsewhere classified; R00.0 Tachycardia, unspecified; R79.82 Elevated C-reactive protein (CRP); A41.9 Sepsis, unspecified organism; J18.9 Pneumonia, unspecified organism; I10 Essential (primary) hypertension; K21.9 Gastro-esophageal reflux disease without esophagitis; E78.00 Pure hypercholesterolemia, unspecified; F12.90 Cannabis use, unspecified, uncomplicated; D72.829 Elevated white blood cell count, unspecified; E87.8 Other disorders of electrolyte and fluid balance, not elsewhere classified; R73.9 Hyperglycemia, unspecified; F41.1 Generalized anxiety disorder; K29.70 Gastritis, unspecified, without bleeding; E78.5 Hyperlipidemia, unspecified; H91.90 Unspecified hearing loss, unspecified ear; R42 Dizziness and giddiness; E56.9 Vitamin deficiency, unspecified; M19.90 Unspecified osteoarthritis, unspecified site; J20.9 Acute bronchitis, unspecified; Z20.822 Contact with and (suspected) exposure to COVID-19; Z90.49 Acquired absence of other specified parts of digestive tract; Z98.890 Other specified postprocedural states; Z87.891 Personal history of nicotine dependence

== ENCOUNTER 2020-10-30 17:36 | Inpatient (IN) | payer OTHER, MEDICAID ==
[~2020-10-30] VITALS: Ht 157.5 cm; Wt 71.4 kg
[~2020-10-30 17:36] MED LIST changes: +AMMONIUM LACTA227 GM T; +BREO ELLIPTA 11 EACH INH; +CETIRIZINE HYDR10 MG PO; +MUCUS RELIEF600 MG PO; +PAROXETINE HCL30 MG PO
[2020-10-30 17:42] VITALS: BP 137/80
[2020-10-30 18:07] LABS: HEMATOCRIT 38.7 % (37.0-47.0); MEAN CELL VOLUME 83.6 fl (81.0-99.0); MEAN CORPUSCULAR HGB 28.9 pg (27.0-31.0); MEAN CORPUSCULAR HGB CONC 34.6 g/dl (33.0-37.0); PLATELET COUNT AUTOMATED 348 10*3/uL (130-400); RED BLOOD COUNT 4.63 10*6/uL (4.10-5.10); RED CELL DISTRI WIDTH 14.2 % (0-14.5); WHITE BLOOD COUNT 18.1 10*3/uL (4.8-10.8)
[2020-10-30 18:17] LABS: ACT PARTIAL THROMBO TIME 21.6 SECONDS (20.0-32.1); INTERNATIONAL NORM RATIO 0.9 (2.0-3.5)
[2020-10-30 18:23] LABS: ALBUMIN 3.9 gm/dl (3.1-4.5); ALKALINE PHOSPHATASE 66 U/L (45-117); BUN 19 mg/dl (7-24); CHLORIDE 103 mmol/L (98-107); CREATININE 1.08 mg/dL (0.55-1.02); POTASSIUM 3.7 mmol/L (3.5-5.1); SGOT/AST 14 IU/L (3-35); SGPT/ALT 49 U/L (12-78); SODIUM 139 mmol/L (136-145); TOTAL PROTEIN 7.4 gm/dL (6.4-8.2)
[2020-10-30 18:28] LABS: TROPONIN I < 0.015 ng/ml (<0.045)
[2020-10-30 18:37] LABS: TOTAL CELLS COUNTED 100 #CELLS
[2020-10-30 18:38] LABS: PLATELET SUFFICIENCY NORMAL (NORMAL)
[2020-10-30 18:39] LABS: BURR CELLS FEW
[2020-10-30 18:47] VITALS: BP 133/70
[2020-10-30 20:01] VITALS: BP 127/67
[2020-10-30 22:05] VITALS: BP 134/66
[2020-10-31] VITALS: BP 111/63
[2020-10-31 06:19] LABS: HEMATOCRIT 34.7 % (37.0-47.0); MEAN CELL VOLUME 84.8 fl (81.0-99.0); MEAN CORPUSCULAR HGB 28.6 pg (27.0-31.0); MEAN CORPUSCULAR HGB CONC 33.7 g/dl (33.0-37.0); MEAN PLATELET VOLUME 10.2 fl (9.6-12.3); PLATELET COUNT AUTOMATED 290 10*3/uL (130-400); RED BLOOD COUNT 4.09 10*6/uL (4.10-5.10); RED CELL DISTRI WIDTH 14.4 % (0-14.5); WHITE BLOOD COUNT 15.4 10*3/uL (4.8-10.8)
[2020-10-31 06:31] LABS: BUN 20 mg/dl (7-24); CHLORIDE 106 mmol/L (98-107); CREATININE 0.88 mg/dL (0.55-1.02); POTASSIUM 3.5 mmol/L (3.5-5.1); SODIUM 144 mmol/L (136-145)
[2020-10-31 06:49] LABS: TOTAL CELLS COUNTED 100 #CELLS
[2020-10-31 06:50] LABS: OVALOCYTES FEW; PLATELET SUFFICIENCY NORMAL (NORMAL)
[2020-10-31 12:00] VITALS: BP 138/71
[2020-10-31 16:00] VITALS: BP 138/67
[2020-10-31 20:00] VITALS: BP 115/60
[2020-11-01] VITALS: BP 100/55
[2020-11-01 06:46] LABS: HEMATOCRIT 37.9 % (37.0-47.0); MEAN CELL VOLUME 86.9 fl (81.0-99.0); MEAN CORPUSCULAR HGB 28.7 pg (27.0-31.0); MEAN PLATELET VOLUME 10.5 fl (9.6-12.3); PLATELET COUNT AUTOMATED 322 10*3/uL (130-400); RED BLOOD COUNT 4.36 10*6/uL (4.10-5.10); RED CELL DISTRI WIDTH 14.5 % (0-14.5); WHITE BLOOD COUNT 19.2 10*3/uL (4.8-10.8)
[2020-11-01 07:13] LABS: BUN 19 mg/dl (7-24); CHLORIDE 103 mmol/L (98-107); CREATININE 0.96 mg/dL (0.55-1.02); POTASSIUM 3.8 mmol/L (3.5-5.1); SODIUM 138 mmol/L (136-145)
[2020-11-01 07:49] LABS: PLATELET SUFFICIENCY NORMAL (NORMAL); TOTAL CELLS COUNTED 100 #CELLS
[2020-11-01 07:50] LABS: BURR CELLS FEW
[2020-11-01 08:00] VITALS: BP 125/67
[2020-11-01 12:00] VITALS: BP 137/78
[2020-11-01 16:00] VITALS: BP 125/61
[2020-11-01 20:00] VITALS: BP 121/69
[2020-11-02] VITALS: BP 93/48
[2020-11-02 06:30] LABS: BUN 20 mg/dl (7-24); CHLORIDE 108 mmol/L (98-107); CREATININE 0.87 mg/dL (0.55-1.02); POTASSIUM 3.9 mmol/L (3.5-5.1); SODIUM 140 mmol/L (136-145)
[2020-11-02 08:00] VITALS: BP 122/60
[2020-11-02 12:00] VITALS: BP 117/64
[2020-11-02 16:14] VITALS: BP 130/80
[2020-11-02 20:00] VITALS: BP 127/71
[2020-11-03] VITALS: BP 95/37
[2020-11-03 08:00] VITALS: BP 162/86
[2020-11-03] MEDS ORDERED: PREDNISONE10 MG PO (10:26)
[2020-11-03] MEDS ORDERED: DOXYCYCLINE100 MG PO (10:26)
== END 2020-11-03 11:30 | disposition home or self-care (01) | DRG 206 ==
LOC: ED 17:36 → 4E 20:51 → EDHOLD 20:51 → 4E 21:20
PROVIDERS: Emergency Medicine; Internal Medicine; ADMIT Family Medicine; ATTEND Family Medicine
PROC: 4A02XM4 Measurement of Cardiac Total Activity, External Approach (ICD-10-PCS; principal; 2020-10-31)
PROC: 3E033HZ Introduction of Radioactive Substance into Peripheral Vein, Percutaneous Approach (ICD-10-PCS; 2020-10-31)
DX: M94.0 Chondrocostal junction syndrome [Tietze] (principal); J44.1 Chronic obstructive pulmonary disease with (acute) exacerbation; R65.10 Systemic inflammatory response syndrome (SIRS) of non-infectious origin without acute organ dysfunction; J44.0 Chronic obstructive pulmonary disease with (acute) lower respiratory infection; R73.9 Hyperglycemia, unspecified; F41.1 Generalized anxiety disorder; J20.9 Acute bronchitis, unspecified; I10 Essential (primary) hypertension; K21.9 Gastro-esophageal reflux disease without esophagitis; Z98.51 Tubal ligation status; Z87.891 Personal history of nicotine dependence; Z83.3 Family history of diabetes mellitus; Z90.49 Acquired absence of other specified parts of digestive tract; Z79.899 Other long term (current) drug therapy; Z90.722 Acquired absence of ovaries, bilateral

== ENCOUNTER → 2020-11-16 | Outpatient (CLI) | payer OTHER, MEDICAID ==
[~2020-11-16] MED LIST changes: +DOXYCYCLINE100 MG PO
[2020-11-16 08:43] LABS: BUN 22 mg/dl (7-24); CHLORIDE 107 mmol/L (98-107); CREATININE 0.74 mg/dL (0.55-1.02); POTASSIUM 4.6 mmol/L (3.5-5.1); SODIUM 139 mmol/L (136-145)
== END | disposition home or self-care (01) ==
LOC: LAB 08:18
PROVIDERS: ATTEND Nurse Practitioner Family
DX: E87.6 Hypokalemia (principal)

== ENCOUNTER → 2021-08-27 | Outpatient (CLI) | payer OTHER, MEDICAID | END | disposition home or self-care (01) | LOC: MAMMO 13:21 | PROVIDERS: ATTEND Nurse Practitioner Family | DX: Z12.31 Encounter for screening mammogram for malignant neoplasm of breast (principal) ==

== ENCOUNTER 2022-04-04 08:17 | Emergency (ER) | payer OTHER, MEDICAID ==
[~2022-04-04] VITALS: Ht 157.4 cm; Wt 61.2 kg
[2022-04-04 09:03] LABS: BASO % 0.4 % (0.0-1.0); EOS % 0.2 % (1.0-4.0); HEMATOCRIT 45.9 % (37.0-47.0); LYMPH # 1.4 10*3/uL (1.3-4.4); LYMPH % 27.4 % (27.0-41.0); MEAN CELL VOLUME 82.7 fl (81.0-99.0); MEAN CORPUSCULAR HGB 28.8 pg (27.0-31.0); MEAN CORPUSCULAR HGB CONC 34.9 g/dl (33.0-37.0); MEAN PLATELET VOLUME 10.3 fl (9.6-12.3); MONO # 0.3 10*3/uL (0.1-1.0); MONO % 6.3 % (3.0-9.0); NEUT # 3.4 10*3/uL (2.3-7.9); NEUT % 65.5 % (47.0-73.0); PLATELET COUNT AUTOMATED 209 10*3/uL (130-400); RED BLOOD COUNT 5.55 10*6/uL (4.10-5.10); RED CELL DISTRI WIDTH 14.1 % (0-14.5); WHITE BLOOD COUNT 5.1 10*3/uL (4.8-10.8)
[2022-04-04 09:22] LABS: ALKALINE PHOSPHATASE 88 U/L (45-117); BUN 18 mg/dl (7-24); CHLORIDE 106 mmol/L (98-107); CREATININE 1.03 mg/dL (0.55-1.02); LIPASE 200 U/L (73-393); SGOT/AST 46 IU/L (3-35); SGPT/ALT 38 U/L (12-78); SODIUM 140 mmol/L (136-145); TOTAL PROTEIN 7.8 gm/dL (6.4-8.2)
[2022-04-04 09:29] LABS: POTASSIUM 2.4 mmol/L (3.5-5.1)
[2022-04-04] MEDS ORDERED: POTASSIUM20 MEQ/16 PO (14:15)
[2022-04-04] MEDS ORDERED: ONDANSETRON4 MG SL (14:16)
== END 2022-04-04 15:00 | disposition home or self-care (01) ==
LOC: ED 08:17
PROVIDERS: Emergency Medicine
DX: U07.1 COVID-19 (principal); R19.7 Diarrhea, unspecified; E87.6 Hypokalemia; F12.90 Cannabis use, unspecified, uncomplicated; Z90.49 Acquired absence of other specified parts of digestive tract; Z98.51 Tubal ligation status; Z98.890 Other specified postprocedural states; Z79.899 Other long term (current) drug therapy

== ENCOUNTER → 2022-05-28 | Outpatient (CLI) | payer OTHER, MEDICAID ==
[~2022-05-28] MED LIST changes: +ONDANSETRON4 MG SL; +POTASSIUM20 MEQ/16 PO
[2022-05-28 14:32] LABS: BASO % 0.3 % (0.0-1.0); EOS # 0.1 10*3/uL (0.0-0.4); EOS % 1.2 % (1.0-4.0); HEMATOCRIT 40.3 % (37.0-47.0); LYMPH # 3.3 10*3/uL (1.3-4.4); LYMPH % 35.5 % (27.0-41.0); MEAN CELL VOLUME 86.1 fl (81.0-99.0); MEAN CORPUSCULAR HGB 29.3 pg (27.0-31.0); MEAN PLATELET VOLUME 10.2 fl (9.6-12.3); MONO # 0.9 10*3/uL (0.1-1.0); MONO % 9.3 % (3.0-9.0); NEUT # 4.9 10*3/uL (2.3-7.9); NEUT % 53.3 % (47.0-73.0); PLATELET COUNT AUTOMATED 374 10*3/uL (130-400); RED BLOOD COUNT 4.68 10*6/uL (4.10-5.10); RED CELL DISTRI WIDTH 14.5 % (0-14.5); WHITE BLOOD COUNT 9.3 10*3/uL (4.8-10.8)
[2022-05-28 14:56] LABS: ALKALINE PHOSPHATASE 78 U/L (45-117); BUN 20 mg/dl (7-24); CHLORIDE 107 mmol/L (98-107); CHOLESTEROL 205 mg/dL (<200); CREATININE 0.76 mg/dL (0.55-1.02); LDL CHOLESTEROL 124 mg/dL (9-159); POTASSIUM 3.8 mmol/L (3.5-5.1); SGOT/AST 13 IU/L (3-35); SGPT/ALT 21 U/L (12-78); SODIUM 140 mmol/L (136-145); TOTAL PROTEIN 7.7 gm/dL (6.4-8.2); TRIGLYCERIDES 112 mg/dl (<150)
== END | disposition home or self-care (01) ==
LOC: LAB 14:11
PROVIDERS: ATTEND Nurse Practitioner Family
DX: I10 Essential (primary) hypertension (principal); E78.2 Mixed hyperlipidemia; E55.9 Vitamin D deficiency, unspecified

== ENCOUNTER → 2022-09-19 | Outpatient (CLI) | payer OTHER, MEDICAID | END | disposition home or self-care (01) | LOC: RAD 10:50 | PROVIDERS: ATTEND Nurse Practitioner Family | DX: J44.9 Chronic obstructive pulmonary disease, unspecified (principal) ==

== ENCOUNTER → 2022-10-22 | Outpatient (CLI) | payer OTHER, MEDICAID | END | disposition home or self-care (01) | LOC: RAD 15:50 | PROVIDERS: ATTEND Nurse Practitioner Family | DX: J01.00 Acute maxillary sinusitis, unspecified (principal) ==

== ENCOUNTER → 2022-10-31 | Outpatient (CLI) | payer OTHER, MEDICAID | END | disposition home or self-care (01) | LOC: CT 15:00 | PROVIDERS: ATTEND Nurse Practitioner Family | DX: I67.82 Cerebral ischemia (principal); W19.XXXA Unspecified fall, initial encounter; Y93.89 Activity, other specified; Y92.89 Other specified places as the place of occurrence of the external cause; Y99.8 Other external cause status ==

== ENCOUNTER → 2023-04-28 | Outpatient (CLI) | payer OTHER, MEDICAID ==
[~2023-04-28] MED LIST changes: +CETIRIZINE10 MG PO; +PAXIL40 M1 PO
== END | disposition home or self-care (01) ==
LOC: LAB 09:48
PROVIDERS: ATTEND Nurse Practitioner Primary Care
DX: I10 Essential (primary) hypertension (principal); R61 Generalized hyperhidrosis

== ENCOUNTER → 2023-07-03 | Outpatient (CLI) | payer OTHER, MEDICAID ==
[2023-07-03 10:48] LABS: BASO % 0.4 % (0.0-1.0); EOS # 0.2 10*3/uL (0.0-0.4); EOS % 2.2 % (1.0-4.0); LYMPH # 2.4 10*3/uL (1.3-4.4); LYMPH % 30.7 % (27.0-41.0); MEAN CORPUSCULAR HGB 28.8 pg (27.0-31.0); MEAN CORPUSCULAR HGB CONC 32.7 g/dl (33.0-37.0); MEAN PLATELET VOLUME 10.8 fl (9.6-12.3); MONO # 0.6 10*3/uL (0.1-1.0); MONO % 7.3 % (3.0-9.0); NEUT # 4.6 10*3/uL (2.3-7.9); NEUT % 59.1 % (47.0-73.0); PLATELET COUNT AUTOMATED 353 10*3/uL (130-400); RED BLOOD COUNT 4.66 10*6/uL (4.10-5.10); RED CELL DISTRI WIDTH 14.6 % (0-14.5); WHITE BLOOD COUNT 7.8 10*3/uL (4.8-10.8)
[2023-07-03 11:13] LABS: ALKALINE PHOSPHATASE 75 U/L (46-116); BUN 17 mg/dl (9-23); CHLORIDE 107 mmol/L (98-107); CHOLESTEROL 195 mg/dL (<200); LDL CHOLESTEROL 126 mg/dL (9-159); POTASSIUM 3.9 mmol/L (3.4-5.1); SGPT/ALT 11 U/L (5-49); TOTAL PROTEIN 7.1 gm/dL (6.0-8.0); TRIGLYCERIDES 65 mg/dl (<150)
== END | disposition home or self-care (01) ==
LOC: LAB 09:22
PROVIDERS: ATTEND Nurse Practitioner Family
DX: K21.9 Gastro-esophageal reflux disease without esophagitis (principal); E55.9 Vitamin D deficiency, unspecified; Z79.899 Other long term (current) drug therapy

== ENCOUNTER 2024-05-01 09:46 | Emergency (ER) | payer OTHER, MEDICAID ==
[~2024-05-01] VITALS: Ht 157.4 cm; Wt 65.3 kg
[2024-05-01] MEDS ORDERED: Dexamethasone Sodium Phospha 4 MG/ML VIAL IV ONE (10:15)
[2024-05-01] MEDS ORDERED: SODIUM CHLORIDE 0.9% 1,000 ML IV ONE (10:15)
[2024-05-01] MEDS ORDERED: Ketorolac Tromethamine 15 MG/ML VIAL IV ONE (10:15)
[2024-05-01] MEDS ORDERED: Ondansetron Hydrochloride 4 MG/2 ML VIAL IV ONE (10:25)
[2024-05-01 10:51] LABS: HEMATOCRIT 38.1 % (37.0-47.0); MEAN CORPUSCULAR HGB 29.2 pg (27.0-31.0); MEAN CORPUSCULAR HGB CONC 34.4 g/dl (33.0-37.0); MEAN PLATELET VOLUME 9.6 fl (9.6-12.3); PLATELET COUNT AUTOMATED 337 10*3/uL (130-400); RED BLOOD COUNT 4.48 10*6/uL (4.10-5.10); RED CELL DISTRI WIDTH 13.8 % (0-14.5); WHITE BLOOD COUNT 14.6 10*3/uL (4.8-10.8)
[2024-05-01 10:55] LABS: MANUAL DIFF REFLEX YES
[2024-05-01 11:14] LABS: BUN 21 mg/dl (9-23); CHLORIDE 105 mmol/L (98-107); POTASSIUM 3.5 mmol/L (3.4-5.1)
[2024-05-01 11:22] LABS: ATYPICAL LYMPHS 1 % (0-0); PLATELET SUFFICIENCY NORMAL (NORMAL); TOTAL CELLS COUNTED 100 #CELLS
[2024-05-01] MEDS ORDERED: DEXAMETHASONE6 MG PO (12:07)
[2024-05-01] MEDS ORDERED: PAXLOVID 300-11 EAC3 PO (12:07)
[2024-05-01] MEDS ORDERED: Ondansetron4 MG PO (12:07)
== END 2024-05-01 12:29 | disposition home or self-care (01) ==
LOC: ED 09:46
PROVIDERS: Emergency Medicine
DX: U07.1 COVID-19 (principal); R53.1 Weakness; M79.10 Myalgia, unspecified site; J44.9 Chronic obstructive pulmonary disease, unspecified; E78.5 Hyperlipidemia, unspecified; I10 Essential (primary) hypertension; F41.9 Anxiety disorder, unspecified; F32.A Depression, unspecified; F12.90 Cannabis use, unspecified, uncomplicated; Z90.49 Acquired absence of other specified parts of digestive tract; Z90.89 Acquired absence of other organs; Z98.51 Tubal ligation status; Z98.890 Other specified postprocedural states

== ENCOUNTER → 2024-06-29 | Outpatient (CLI) | payer OTHER, MEDICAID ==
[~2024-06-29] MED LIST changes: +DEXAMETHASONE6 MG PO; +Ondansetron4 MG PO; +PAXLOVID 300-11 EAC3 PO
== END | disposition home or self-care (01) ==
LOC: RAD 10:18
PROVIDERS: ATTEND Nurse Practitioner Family
DX: M17.11 Unilateral primary osteoarthritis, right knee (principal); M25.561 Pain in right knee

== ENCOUNTER 2024-07-31 08:37 | Emergency (ER) | payer OTHER, MEDICAID ==
[~2024-07-31] VITALS: Wt 68.0 kg
[2024-07-31] MEDS ORDERED: Lidocaine Hydrochloride 10 ML SYR UR ONE (09:00)
[2024-07-31] MEDS ORDERED: Ketorolac Tromethamine 30 MG/ML VIAL IM ONE (09:00)
[2024-07-31] MEDS ORDERED: PENICILLIN VK500 MG PO (09:02)
== END 2024-07-31 09:10 | disposition home or self-care (01) ==
LOC: ED 08:37
DX: K04.7 Periapical abscess without sinus (principal); I10 Essential (primary) hypertension; F41.9 Anxiety disorder, unspecified; F32.A Depression, unspecified; J44.9 Chronic obstructive pulmonary disease, unspecified; E78.5 Hyperlipidemia, unspecified; F12.90 Cannabis use, unspecified, uncomplicated; Z90.711 Acquired absence of uterus with remaining cervical stump; Z90.49 Acquired absence of other specified parts of digestive tract; Z90.89 Acquired absence of other organs; Z98.890 Other specified postprocedural states

== ENCOUNTER → 2024-08-23 | Outpatient (CLI) | payer OTHER, MEDICAID ==
[~2024-08-23] MED LIST changes: +PENICILLIN VK500 MG PO
== END | disposition home or self-care (01) ==
LOC: MAMMO 02:06
PROVIDERS: ATTEND Nurse Practitioner Family
DX: Z12.31 Encounter for screening mammogram for malignant neoplasm of breast (principal); N64.89 Other specified disorders of breast; R92.323 Mammographic fibroglandular density, bilateral breasts

== ENCOUNTER → 2025-03-28 | Outpatient (CLI) | payer OTHER, MEDICAID ==
[~2025-03-28] MED LIST changes: -CRESTOR5 MG PO; +GABAPENTIN100 M2 PO; +ROSUVASTATIN CA10 MG PO
== END | disposition home or self-care (01) ==
LOC: US 03-17 09:00
PROVIDERS: ATTEND Internal Medicine Gastroenterology
DX: K76.0 Fatty (change of) liver, not elsewhere classified (principal); K76.89 Other specified diseases of liver; Z90.49 Acquired absence of other specified parts of digestive tract

== ENCOUNTER 2025-04-06 12:06 | Emergency (ER) | payer OTHER, MEDICAID ==
[~2025-04-06] VITALS: Ht 154.9 cm; Wt 67.1 kg
[~2025-04-06 12:06] MED LIST changes: +MUCUS RELIEF E600 MG PO
[2025-04-06 13:05] LABS: BASO # 0.0 10*3/uL (0.0-0.1); BASO % 0.2 % (0.0-1.0); EOS # 0.1 10*3/uL (0.0-0.4); EOS % 0.6 % (1.0-4.0); MEAN CELL VOLUME 85.1 fl (81.0-99.0); MEAN CORPUSCULAR HGB 28.9 pg (27.0-31.0); MEAN PLATELET VOLUME 9.8 fl (9.6-12.3); MONO # 1.2 10*3/uL (0.1-1.0); MONO % 7.2 % (3.0-9.0); NEUT # 9.6 10*3/uL (2.3-7.9); NEUT % 59.8 % (47.0-73.0); NUCLEATED RED BLOOD CELL 0.0 % (0.0-0.0); NUCLEATED RED BLOOD CELL 0.0 10*3/uL (0.0-0.0); PLATELET COUNT AUTOMATED 359 10*3/uL (130-400); RED CELL DISTRI WIDTH 13.4 % (0-14.5)
[2025-04-06 13:16] LABS: ACT PARTIAL THROMBO TIME 22.5 SECONDS (20.0-32.1)
[2025-04-06 13:24] LABS: BUN 24 mg/dl (9-23); ETHYL ALCOHOL < 3.0 mg/dl (<3)
[2025-04-06 14:29] LABS: BILIRUBIN Negative (Negative); BLOOD Negative (Negative); CLARITY Clear (Clear); COLOR Yellow (Yellow); KETONE Negative (Negative); LEUKO ESTERASE 2+ (Negative); NITRITE Negative (Negative); PH 7.5 (4.5-8.0); SPECIFIC GRAVITY 1.015 (1.001-1.030); UROBILINOGEN 0.2 E.U./dl (0.0-1.0)
[2025-04-06 14:36] LABS: URINE AMPHETAMINES Negative (1000ng/ml); URINE BARBITURATES Negative (200ng/ml); URINE BENZODIAZEPINES Negative (200ng/ml); URINE CANNABINOIDS (THC) Positive (50ng/ml); URINE COCAINE Negative (300ng/ml); URINE METHADONE Negative (300ng/ml); URINE OPIATES Negative (300ng/ml); URINE PHENCYCLIDINE Negative (25ng/ml)
[2025-04-06 14:37] LABS: BACTERIA 1+; EPITHELIAL CELLS 21-30; RBC 0-2 rbc/hpf (0-2); WBC 16-20 wbc/hpf (0-5)
[2025-04-06] MEDS ORDERED: Albuterol Sulf/Ipratropium 3 ML VIAL NEB ONE (15:25)
== END 2025-04-06 16:46 | disposition home or self-care (01) ==
LOC: ED 12:06
PROVIDERS: Internal Medicine
DX: J44.9 Chronic obstructive pulmonary disease, unspecified (principal); I10 Essential (primary) hypertension; E78.5 Hyperlipidemia, unspecified; F32.A Depression, unspecified; F41.9 Anxiety disorder, unspecified; F12.90 Cannabis use, unspecified, uncomplicated; Z79.899 Other long term (current) drug therapy; Z90.49 Acquired absence of other specified parts of digestive tract; Z90.89 Acquired absence of other organs; Z98.51 Tubal ligation status; Z98.890 Other specified postprocedural states

== ENCOUNTER → 2025-04-27 | Outpatient (CLI) | payer OTHER, MEDICAID ==
[~2025-04-27] MED LIST changes: +Regadenoson 0.4 MG/5 ML SYR IV ONE
== END | disposition home or self-care (01) ==
LOC: CARD 01:27
PROVIDERS: ATTEND Nurse Practitioner Family
DX: I51.7 Cardiomegaly (principal); I42.9 Cardiomyopathy, unspecified; I44.7 Left bundle-branch block, unspecified; I50.20 Unspecified systolic (congestive) heart failure; I20.89 Other forms of angina pectoris

== ENCOUNTER → 2025-07-06 | Outpatient (CLI) | payer OTHER, MEDICAID ==
[~2025-07-06] MED LIST changes: -Regadenoson 0.4 MG/5 ML SYR IV ONE
== END | disposition home or self-care (01) ==
LOC: ORTHO 02:23
PROVIDERS: ATTEND Orthopaedic Surgery
DX: M19.041 Primary osteoarthritis, right hand (principal); M20.091 Other deformity of right finger(s); M79.641 Pain in right hand